=== PATIENT | female | born 2005 | race Caucasian/White ===

== ENCOUNTER 2024-06-01 17:38 | Emergency (ER) | payer OTHER, SELFPAY ==
--- NOTE | ~2024-06-01 | US_ITS ---
CLINICAL HISTORY: bilateral lower abd pain US OB 1st Trimester transvaginal Comparison: None Findings: No intrauterine identified. The uterus is anteverted and measures 8.4 cm in length. Endometrium measures 1.4 cm in thickness. Moderate simple appearing free fluid in the pelvis. Ovaries are normal in size and appearance. There is a 2.1 cm corpus luteum cyst within the right ovary. IMPRESSION: of unknown location. No intrauterine identified. Findings may indicate very early versus recent spontaneous or ectopic . Recommend serial beta HCG evaluation and follow-up ultrasound in 7 days. This document has been electronically signed by: Sudarshan Medellin MD on 06/02/2024 01:24:43
[2024-06-01 17:50] VITALS: BP 141/74; PULSE 86; RESP 19; TEMP 37.1; O2SAT 98; BMI 23.8
--- NOTE | 2024-06-01 17:54 | ED_ITS ---
HPI - General Adult General Chief complaint: Abdominal Pain Stated complaint: abd pain Time Seen by Provider: 06/01/24 22:24 Source: patient Mode of arrival: ambulatory Limitations: no limitations History of Present Illness ED Provider: Dr. Alyssa Ray HPI narrative: Patient comes to the emergency room complaining of 2 days of bilateral lower abdominal pain, nausea vomiting. Patient denies diarrhea, denies hematuria or dysuria, no flank pain. Related Data Previous Rx's ?Medication ?Instructions ?Recorded doxylamine 20 mg-pyridoxine 20 mg 1 tab PO BID PRN nausea and 06/02/24 tablet,immediate and delayed vomiting #30 tabs release [id number]-gun-[id number] 120 mcg-dha 25 1 tab PO DAILY #90 tabs 06/02/24 mg-herb no.293 66.7 mg chew tablet (Alive Premium ) Allergies Allergy/AdvReac Type Severity Reaction Status Date / Time coconut Allergy Anaphylaxis Verified 06/01/24 17:52 Review of Systems 2 Review of Systems: Constitutional : No Weight loss, No Fever, No Chills, No Night Sweats, No Fatigue, No Malaise ENT/Mouth : No Hearing loss, No Ear Pain, No Nasal Congestion, No Sinus Pain, No Hoarseness, No sore throat, No Rhinorrhea, No Swallowing Difficulty Eyes: No Eye Pain, No Swelling, No Redness, No Foreign Body, No Discharge, No Vision Changes Cardiovascular : No Chest Pain, No SOB, No Dyspnea on Exertion, No Orthopnea, No Edema, No Palpitations Respiratory : No Cough, No Sputum, No Wheezing, No Smoke Exposure, No Dyspnea Gastrointestinal : Complaining of nausea and vomiting, No Diarrhea, No Constipation, complaining of bilateral lower quadrant pain Genitourinary : no irregular bleeding, No Dysuria, No Urinary Frequency, No Hematuria, No Urinary Incontinence, No Urgency, No Flank Pain, No Urinary Flow Changes, No Hesitancy Musculoskeletal : No joint pain, No Myalgias, No Joint Swelling Skin : No Skin Lesions, No rash Neuro : No Weakness, No Numbness, No Paresthesias, No Loss of Consciousness, No Dizziness, No Headache Psych : No Anxiety/Panic, No Depression, No SI/HI/AH/VH, No Social Issues, Heme/Lymph: No Bruising, No Bleeding,No Lymphadenopathy Endocrine : No Polyuria, No Polydipsia, No Temperature Intolerance [facility] Social History Social History Smoked in Last 30 Days: No Use of substances other than those prescribed or required for medical reasons: No Advance Directives: No Advance Directives Information Provided: No Do you have a plan to hurt others: No Plan Patient : Yes Physical Exam ED Vital Signs: Vital Signs - 24 hr 06/01/24 17:50 06/01/24 22:44 06/02/24 00:00 Temperature 98.8 F 98.7 F 98.1 F Pulse Rate 86 74 74 Respiratory Rate 19 16 18 Blood Pressure 141/74 H 128/71 127/63 Pulse Oximetry 98 96 95 Oxygen Delivery Method Room Air Room Air 06/02/24 01:51 Temperature 98.4 F Pulse Rate 81 Respiratory Rate 16 Blood Pressure 119/62 Pulse Oximetry 98 Oxygen Delivery Method Room Air BMI result Body Mass Index 23.8 Const Other: Appearance: Alert. Oriented X3. No acute distress. Eyes: Pupils equal, round and reactive to light. ENT: Pharynx normal. Neck: Normal inspection. Neck supple. No lymph nodes noted. No crepitus CVS: Normal heart rate and rhythm. Pulses normal. Normal S1 and S2 Respiratory: No respiratory distress. Breath sounds normal. No Wheezing. No rales Abdomen: Soft, mild discomfort to palpation in bilateral lower quadrants, no rebound or guarding, No rigidity. No distention. Skin: Skin warm and dry. Normal skin color. Normal skin turgor. Extremities: No lower extremity edema. No Lacerations. No Rash Neuro: Oriented X 3. No motor deficit. No sensory deficit. Moving all extremities. No slurred speech. CN 2 through 12 grossly intact Psych: calm, cooperative, normal affect Course Course Course Narrative: RmE: 19-year-old female presents to ED for lower abdominal pain for the past couple of days. Patient denies any trauma. Labs ordered Medical Decision Making Medical Decision Making MDM Narrative: Patient reports that she has been vomiting for couple of days along with having abdominal pain. Patient's white blood cell count 11.0, likely reactive leukocytosis. No significant electrolyte abnormality. Patient's urine and beta hCG quant is positive, 352 -ultrasound : of unknown location, no intrauterine identified, findings may indicate a very early versus recent spontaneous or ectopic At this time, patient states that she has no pain at all, patient has no vaginal bleeding. It is unlikely that patient had spontaneous or an ectopic . Patient instructed to return in 48 hours for a beta hCG count. I discussed with the patient the signs of symptoms of an ectopic and may need to return to the emergency room immediately. Patient agrees with plan. Differential Diagnosis Differential Diagnoses: The differential diagnosis associated with the presentation includes (As above) Lab Data MDM Lab Attestation statement: I reviewed the patient's lab results. 06/01/24 19:07 06/01/24 19:07 Labs: Lab Results 06/01/24 Range/Units 19:07 WBC 11.0 H (4.8-10.8) X10*3/uL RBC 4.50 (4.20-5.50) X10*6/uL Hgb 13.0 (12.0-16.0) g/dl Hct 38.2 (37.0-47.0) % MCV 84.9 (80.0-98.0) fL MCH 28.9 (27.0-33.0) pg MCHC 34.0 (31.0-35.0) g/dl RDW 13.2 (11.0-16.0) % Plt Count 211 (160-400) X10*3/uL MPV 10.0 (9.4-12.3) fL Immature Gran % (Auto) 0.4 (0.0-0.4) % Neut % (Auto) 64.8 (45-73) % Lymph % (Auto) 27.1 (20-40) % [place] % (Auto) 5.5 (2-11) % Eos % (Auto) 1.6 (0-4) % Baso % (Auto) 0.6 (0-2) % Lymph # (Auto) 3.0 (1.2-4.9) X10*3/uL [place] # (Auto) 0.6 (0.1-1.2) X10*3/uL Eos # (Auto) 0.2 (0.0-0.4) X10*3/uL Baso # (Auto) 0.1 (0.0-0.2) X10*3/uL Abs Immat Gran (auto) 0.04 H (0.00-0.03) X10*3/uL Absolute Neuts (auto) 7.1 (2.0-8.3) x10*3/uL Absolute Nucleated RBC 0.000 (0.0-0.012) X10*3/uL Nucleated RBC % (auto) 0.0 (0.0-0.2) /100WBC Sodium 138 (135-145) mmol/L Potassium 4.0 (3.3-5.1) mmol/L Chloride 110 H (96-108) mmol/L Carbon Dioxide 21 L (22-29) mmol/L Anion Gap 11 L (12-20) BUN 4 L (9-16) mg/dL Creatinine 0.73 (0.5-1.4) mg/dL Estim Creat Clear Calc 96.4 Estimated GFR > 60 Random Glucose 86 (60-115) mg/dL Calcium 8.9 (8.4-10.2) mg/dL Total Bilirubin 0.5 (0.0-1.0) mg/dL Direct Bilirubin 0.1 (0.0-0.5) mg/dL AST 20 (5-31) U/L ALT 11 (0-31) U/L Alkaline Phosphatase 54 (39-117) U/L Total Protein 7.3 (6.5-8.0) g/dL Albumin 4.4 (3.5-5.0) g/dL Lipase 19 (8-78) U/L Beta HCG, Quant 352 mIU/mL Urine Color Yellow Urine Appearance Clear Urine pH 5.5 (5.0-9.0) Ur Specific [place] <= 1.005 (1.005-1.025) Urine Protein Negative (Neg-Trace) mg/dL Urine Glucose (UA) Negative (Negative) mg/dL Urine Ketones Trace (Negative) mg/dL Urine Blood Negative (Negative) Urine Nitrite Negative (Negative) Ur Leukocyte Esterase Negative (Negative) Urine Test POSITIVE H (NEGATIVE) Independent Interpretation I performed an independent interpretation of an: Ultrasound Radiology Impression Discussion of test interpretation with radiology: I have reviewed the radiologist's reading. Radiologist Impression: of unknown location. No intrauterine identified. Findings may indicate very early versus recent spontaneous or ectopic . Recommend serial beta HCG evaluation and follow-up ultrasound in 7 days. Critical Care Time Critical Care Time Critical Care Time: Yes Total Critical Care Time: 60 Attestation: I have personally provided critical care time. Time includes review of lab data, radiology results, discussion with consultants, and monitoring for potential decompensation. Intervention performed as documented. Discharge Plan Discharge Clinical Impression: Positive test, Abdominal pain Patient Disposition: Home, Self-Care Instructions: (ED), Abdominal Pain (ED) Additional Instructions: Please return in 48 hours, approximately around 19:00 on 06/03/2024. You need a beta hCG level. If you have any significant abdominal pain, vaginal bleeding, please return immediately to the emergency room. Prescriptions: New doxylamine-pyridoxine (vit B6) 20-20 mg tablet,IR,delayed rel,biphasic 1 tab PO BID PRN (Reason: nausea and vomiting) Qty: 30 0RF Alive Premium 120 mcg-25 mg- 66.7 mg tablet,chewable 1 tab PO DAILY Qty: 90 2RF Referrals: Nash Juarez MD [Physician] - 06/05/24 Interventions: ED Discharge Assessment Last Done: 06/02/24 01:51 Discharge Date/Time: 06/02/24 01:56 Print Language: German
[2024-06-01 19:11] LABS: MANUAL DIFF FLAG NO
[2024-06-01 19:12] LABS: Basophils Absolute Auto 0.1 X10*3/uL (0.0-0.2); Basophils Percent Auto 0.6 % (0-2); Eosinophils Absolute Auto 0.2 X10*3/uL (0.0-0.4); Eosinophils Percent Auto 1.6 % (0-4); Hematocrit 38.2 % (37.0-47.0); Imm Gran Abs Auto 0.04 X10*3/uL (0.00-0.03); Imm Gran Pct Auto 0.4 % (0.0-0.4); Lymphocytes Percent Auto 27.1 % (20-40); Mean Corpuscular Hemoglobin 28.9 pg (27.0-33.0); Mean Corpuscular Volume 84.9 fL (80.0-98.0); Monocytes Absolute Auto 0.6 X10*3/uL (0.1-1.2); Monocytes Percent Auto 5.5 % (2-11); Neutrophils Absolute Auto 7.1 x10*3/uL (2.0-8.3); Neutrophils Percent Auto 64.8 % (45-73); Platelet Count 211 X10*3/uL (160-400); Red Cell Distribution Width 13.2 % (11.0-16.0)
[2024-06-01 19:15] LABS: Appearance Urine Clear; Color Urine Yellow; Glucose Urine UA Negative (Negative); Leukocyte Esterase Urine Negative (Negative); Nitrite Urine Negative (Negative); PH 5.5 (5.0-9.0); Specific Gravity - Urine <= 1.005 (1.005-1.025); UPreg QC Valid YES; Urine Blood Negative (Negative); Urine Ketones Trace mg/dL (Negative); Urine Pregnancy POSITIVE (NEGATIVE); Urine Protein Negative (Neg-Trace)
[2024-06-01 19:28] LABS: Alanine Aminotransferase 11 U/L (0-31); Albumin Level 4.4 g/dL (3.5-5.0); Alkaline Phosphatase 54 U/L (39-117); Anion Gap 11 (12-20); Aspartate Amino Transferase 20 U/L (5-31); Bilirubin Direct 0.1 mg/dL (0.0-0.5); Bilirubin Total 0.5 mg/dL (0.0-1.0); Blood Urea Nitrogen 4 mg/dL (9-16); Calcium 8.9 mg/dL (8.4-10.2); Carbon Dioxide 21 mmol/L (22-29); Chloride 110 mmol/L (96-108); Creatinine Clr Calc Pharmacy 96.4; Estimated Glomerular Filt Rate > 60; Glucose Random 86 mg/dL (60-115); Lipase 19 U/L (8-78); Sodium 138 mmol/L (135-145); Total Protein 7.3 g/dL (6.5-8.0)
[2024-06-01 19:34] LABS: HCG Quantitative 352 mIU/mL
[2024-06-01 22:44] VITALS: BP 128/71; PULSE 74; RESP 16; TEMP 37.1; O2SAT 96
[2024-06-02] VITALS: BP 127/63; PULSE 74; RESP 18; TEMP 36.7; O2SAT 95
[2024-06-02 01:51] VITALS: BP 119/62; PULSE 81; RESP 16; TEMP 36.9; O2SAT 98
== END 2024-06-02 01:56 | disposition home or self-care (01) ==
PROVIDERS: Physician Assistant; Emergency Provider Emergency Medicine
DX: O21.0 Mild hyperemesis gravidarum (principal); Z3A.01 Less than 8 weeks gestation of pregnancy; R10.2 Pelvic and perineal pain; Z79.899 Other long term (current) drug therapy
CPT/HCPCS: 36415; 76801; 76817; 80048; 80076; 81003; 81025; 83690; 84702; 85025; 99284

== ENCOUNTER 2024-06-04 18:45 | Emergency (ER) | payer OTHER, SELFPAY ==
--- NOTE | ~2024-06-04 | US_ITS ---
CLINICAL HISTORY: IUP? US pelvis transabdominal and transvaginal with Doppler Comparison: US - US OB PELVIC AND TRANSVAGINAL - 06/02/24 00:18 EST Findings: Transabdominal scanning performed for overall anatomy. Transvaginal scanning performed for additional detail. Uterus measures 7.3 x 4.6 x 6 cm. There is a small intrauterine gestational sac with mean sac diameter of 3.1 mm corresponding to estimated gestational age of 4 weeks 5 days. There is no yolk sac or pole. Right ovary measures 3.3 x 2.3 x 2.8 cm. There is no right adnexal mass or fluid collection. There is normal color Doppler and arterial/venous spectral tracings within the right ovary. Left ovary measures 2.9 x 2.1 x 2 cm. There is no left adnexal mass or fluid collection. There is normal color Doppler and arterial/venous spectral tracings within the left ovary. There is minimal free fluid in the cul-de-sac. IMPRESSION: Small intrauterine gestational sac with estimated gestational age of 4 weeks 5 days. No pole seen at this time to confirm viability. This document has been electronically signed by: Thee Galarza MD on 06/04/2024 21:29:25
--- NOTE | 2024-06-04 19:28 | ED_ITS ---
HPI - General Adult General Chief complaint: Recheck/Abnormal Lab/Rx Stated complaint: Need HCG levels retested Time Seen by Provider: 06/04/24 23:24 Related Data Previous Rx's ?Medication ?Instructions ?Recorded doxylamine 20 mg-pyridoxine 20 mg 1 tab PO BID PRN nausea and 06/02/24 tablet,immediate and delayed vomiting #30 tabs release [id number]-khw-eqwmb 120 mcg-dha 25 1 tab PO DAILY #90 tabs 06/02/24 mg-herb no.293 66.7 mg chew tablet (Alive Premium ) Allergies Allergy/AdvReac Type Severity Reaction Status Date / Time coconut Allergy Anaphylaxis Verified 06/04/24 19:42 [facility] Social History Social History Advance Directives: No Advance Directives Information Provided: Yes Physical Exam ED Vital Signs: Vital Signs - 24 hr 06/04/24 19:41 06/04/24 23:49 Temperature 98.6 F 98.3 F Pulse Rate 78 77 Respiratory Rate 16 18 Blood Pressure 109/62 113/74 Pulse Oximetry 99 98 Oxygen Delivery Method Room Air Room Air BMI result Body Mass Index 26.4 Course Course Course Narrative: RME: 19-year-old female presents to ED for repeat hCG ultrasound. Patient is but 2 days ago and ED head ultrasound with no IUP. Patient returns to ED today for repeat hCG and IUP with mild abdominal cramping. Labs ultrasound ordered Medical Decision Making Lab Data 06/04/24 20:12 06/04/24 20:12 Labs: Lab Results 06/04/24 Range/Units 20:12 WBC 8.9 (4.8-10.8) X10*3/uL RBC 4.32 (4.20-5.50) X10*6/uL Hgb 12.3 (12.0-16.0) g/dl Hct 37.4 (37.0-47.0) % MCV 86.6 (80.0-98.0) fL MCH 28.5 (27.0-33.0) pg MCHC 32.9 (31.0-35.0) g/dl RDW 13.2 (11.0-16.0) % Plt Count 201 (160-400) X10*3/uL MPV 9.8 (9.4-12.3) fL Immature Gran % (Auto) 0.3 (0.0-0.4) % Neut % (Auto) 62.7 (45-73) % Lymph % (Auto) 24.4 (20-40) % [place] % (Auto) 7.7 (2-11) % Eos % (Auto) 4.1 H (0-4) % Baso % (Auto) 0.8 (0-2) % Lymph # (Auto) 2.2 (1.2-4.9) X10*3/uL [place] # (Auto) 0.7 (0.1-1.2) X10*3/uL Eos # (Auto) 0.4 (0.0-0.4) X10*3/uL Baso # (Auto) 0.1 (0.0-0.2) X10*3/uL Abs Immat Gran (auto) 0.03 (0.00-0.03) X10*3/uL Absolute Neuts (auto) 5.6 (2.0-8.3) x10*3/uL Absolute Nucleated RBC 0.000 (0.0-0.012) X10*3/uL Nucleated RBC % (auto) 0.0 (0.0-0.2) /100WBC PT 13.7 H (10.9-12.4) SEC INR 1.2 H (0.9-1.1) APTT 28.8 (26.0-36.8) SEC Sodium 141 (135-145) mmol/L Potassium 4.1 (3.3-5.1) mmol/L Chloride 110 H (96-108) mmol/L Carbon Dioxide 23 (22-29) mmol/L Anion Gap 12 (12-20) BUN 7 L (9-16) mg/dL Creatinine 0.65 (0.5-1.4) mg/dL Estim Creat Clear Calc 121.5 Estimated GFR > 60 Random Glucose 86 (60-115) mg/dL Calcium 8.9 (8.4-10.2) mg/dL Total Bilirubin 0.4 (0.0-1.0) mg/dL AST 21 (5-31) U/L ALT 15 (0-31) U/L Alkaline Phosphatase 56 (39-117) U/L Total Protein 7.0 (6.5-8.0) g/dL Albumin 4.3 (3.5-5.0) g/dL Beta HCG, Quant 1500 mIU/mL Blood Type A Positive Discharge Plan Discharge Clinical Impression: Patient Disposition: Home, Self-Care Instructions: (ED) Prescriptions: No Action doxylamine-pyridoxine (vit B6) 20-20 mg tablet,IR,delayed rel,biphasic 1 tab PO BID PRN (Reason: nausea and vomiting) Qty: 30 0RF Alive Premium 120 mcg-25 mg- 66.7 mg tablet,chewable 1 tab PO DAILY Qty: 90 2RF Referrals: Tiffany Heath MD [Primary Care Provider] - (Please also follow-up with your OBGYN this week.) Print Language: Greek
[2024-06-04 19:41] VITALS: BP 109/62; PULSE 78; RESP 16; TEMP 37; O2SAT 99; BMI 26.4
[2024-06-04 20:15] LABS: MANUAL DIFF FLAG NO
[2024-06-04 20:17] LABS: Basophils Absolute Auto 0.1 X10*3/uL (0.0-0.2); Basophils Percent Auto 0.8 % (0-2); Eosinophils Absolute Auto 0.4 X10*3/uL (0.0-0.4); Eosinophils Percent Auto 4.1 % (0-4); Hematocrit 37.4 % (37.0-47.0); Hemoglobin 12.3 g/dl (12.0-16.0); Imm Gran Abs Auto 0.03 X10*3/uL (0.00-0.03); Imm Gran Pct Auto 0.3 % (0.0-0.4); Lymphocytes Absolute Auto 2.2 X10*3/uL (1.2-4.9); Lymphocytes Percent Auto 24.4 % (20-40); Mean Corpuscular HGB Conc 32.9 g/dl (31.0-35.0); Mean Corpuscular Hemoglobin 28.5 pg (27.0-33.0); Mean Corpuscular Volume 86.6 fL (80.0-98.0); Mean Platelet Volume 9.8 fL (9.4-12.3); Monocytes Absolute Auto 0.7 X10*3/uL (0.1-1.2); Monocytes Percent Auto 7.7 % (2-11); Neutrophils Absolute Auto 5.6 x10*3/uL (2.0-8.3); Neutrophils Percent Auto 62.7 % (45-73); Platelet Count 201 X10*3/uL (160-400); Red Blood Count 4.32 X10*6/uL (4.20-5.50); Red Cell Distribution Width 13.2 % (11.0-16.0); White Blood Count 8.9 X10*3/uL (4.8-10.8)
[2024-06-04 20:22] LABS: INTERNATIONAL NORM RATIO 1.2 (0.9-1.1); Prothrombin Time 13.7 SEC (10.9-12.4)
[2024-06-04 20:25] LABS: Partial Thromboplastin Time 28.8 SEC (26.0-36.8)
[2024-06-04 20:41] LABS: Alanine Aminotransferase 15 U/L (0-31); Albumin Level 4.3 g/dL (3.5-5.0); Alkaline Phosphatase 56 U/L (39-117); Anion Gap 12 (12-20); Aspartate Amino Transferase 21 U/L (5-31); Bilirubin Total 0.4 mg/dL (0.0-1.0); Blood Urea Nitrogen 7 mg/dL (9-16); Calcium 8.9 mg/dL (8.4-10.2); Carbon Dioxide 23 mmol/L (22-29); Chloride 110 mmol/L (96-108); Creatinine Clr Calc Pharmacy 121.5; Estimated Glomerular Filt Rate > 60; Glucose Random 86 mg/dL (60-115); Potassium 4.1 mmol/L (3.3-5.1); Sodium 141 mmol/L (135-145)
[2024-06-04 20:42] LABS: HCG Quantitative 1500 mIU/mL
[2024-06-04 23:49] VITALS: BP 113/74; PULSE 77; RESP 18; TEMP 36.8; O2SAT 98
--- NOTE | 2024-06-04 23:53 | ED_ITS ---
HPI - Recheck/Abnormal Lab/Rx General Chief Complaint: Recheck/Abnormal Lab/Rx Stated Complaint: Need HCG levels retested Time Seen by Provider: 06/04/24 23:24 History of Present Illness HPI narrative: Patient is a 19-year-old female presents today with having needing a repeat hormone check. Patient found out she is 2 days ago. Had a quant of approximately 400. She deny having any additional pain. No pain on urination. No fever no chills. No systemic complaints. No vaginal bleeding. Related Data Previous Rx's ?Medication ?Instructions ?Recorded doxylamine 20 mg-pyridoxine 20 mg 1 tab PO BID PRN nausea and 06/02/24 tablet,immediate and delayed vomiting #30 tabs release uajenrtd-uut-gmpbl 120 mcg-dha 25 1 tab PO DAILY #90 tabs 06/02/24 mg-herb no.293 66.7 mg chew tablet (Alive Premium ) Allergies Allergy/AdvReac Type Severity Reaction Status Date / Time coconut Allergy Anaphylaxis Verified 06/04/24 19:42 Review of Systems 2 Review of Systems: No fever no chills no chest pain or shortness of breath no dizziness Yes all other systems are reviewed and are negative [facility] Past Medical History Attestation statement: The following information was validated with the patient. Social History Social History Advance Directives: No Advance Directives Information Provided: Yes Physical Exam 2 Vital Signs: Vital Signs: Last Vital Signs Temp 98.3 F 06/04/24 23:49 Pulse 77 06/04/24 23:49 Resp 18 06/04/24 23:49 BP 113/74 06/04/24 23:49 Pulse Ox 98 06/04/24 23:49 O2 Del Method Room Air 06/04/24 23:49 BMI result Body Mass Index 26.4 Appearance: Alert. Oriented X3. No acute distress. Eyes: Pupils equal, round and reactive to light. ENT: Pharynx normal. Neck: Normal inspection. Neck supple. No lymph nodes noted. No crepitus CVS: Normal heart rate and rhythm. Pulses normal. Normal S1 and S2 Respiratory: No respiratory distress. Breath sounds normal. No Wheezing. No rales Abdomen: Soft and nontender. No rigidity. No distention. good BS x4 Skin: Skin warm and dry. Normal skin color. Normal skin turgor. Extremities: No lower extremity edema. Neurovascular intact to all extremities. No Lacerations. No Rash Neuro: Oriented X 3. No motor deficit. No sensory deficit. Moving all extermities. No slurred speech Medical Decision Making Medical Decision Making [facility] Narrative: Patient's quant is over 1200. In no acute distress. Ultrasound was done it showed a positive yolk sac. Patient's quant rise appropriately. Positive yolk sac all indicative of an intrauterine . Will have patient follow-up on an outpatient basis with OBGYN. Currently in stable condition. Differential Diagnosis Differential Diagnoses: The differential diagnosis associated with the presentation includes Ectopic, miscarriage, Admission/Observation Consideration of admission/observation: Escalation of care including admission/observation considered Lab Data [facility] Lab Attestation statement: I reviewed the patient's lab results. 06/04/24 20:12 06/04/24 20:12 Labs: Lab Results 06/04/24 Range/Units 20:12 WBC 8.9 (4.8-10.8) X10*3/uL RBC 4.32 (4.20-5.50) X10*6/uL Hgb 12.3 (12.0-16.0) g/dl Hct 37.4 (37.0-47.0) % MCV 86.6 (80.0-98.0) fL MCH 28.5 (27.0-33.0) pg MCHC 32.9 (31.0-35.0) g/dl RDW 13.2 (11.0-16.0) % Plt Count 201 (160-400) X10*3/uL MPV 9.8 (9.4-12.3) fL Immature Gran % (Auto) 0.3 (0.0-0.4) % Neut % (Auto) 62.7 (45-73) % Lymph % (Auto) 24.4 (20-40) % [place] % (Auto) 7.7 (2-11) % Eos % (Auto) 4.1 H (0-4) % Baso % (Auto) 0.8 (0-2) % Lymph # (Auto) 2.2 (1.2-4.9) X10*3/uL [place] # (Auto) 0.7 (0.1-1.2) X10*3/uL Eos # (Auto) 0.4 (0.0-0.4) X10*3/uL Baso # (Auto) 0.1 (0.0-0.2) X10*3/uL Abs Immat Gran (auto) 0.03 (0.00-0.03) X10*3/uL Absolute Neuts (auto) 5.6 (2.0-8.3) x10*3/uL Absolute Nucleated RBC 0.000 (0.0-0.012) X10*3/uL Nucleated RBC % (auto) 0.0 (0.0-0.2) /100WBC PT 13.7 H (10.9-12.4) SEC INR 1.2 H (0.9-1.1) APTT 28.8 (26.0-36.8) SEC Sodium 141 (135-145) mmol/L Potassium 4.1 (3.3-5.1) mmol/L Chloride 110 H (96-108) mmol/L Carbon Dioxide 23 (22-29) mmol/L Anion Gap 12 (12-20) BUN 7 L (9-16) mg/dL Creatinine 0.65 (0.5-1.4) mg/dL Estim Creat Clear Calc 121.5 Estimated GFR > 60 Random Glucose 86 (60-115) mg/dL Calcium 8.9 (8.4-10.2) mg/dL Total Bilirubin 0.4 (0.0-1.0) mg/dL AST 21 (5-31) U/L ALT 15 (0-31) U/L Alkaline Phosphatase 56 (39-117) U/L Total Protein 7.0 (6.5-8.0) g/dL Albumin 4.3 (3.5-5.0) g/dL Beta HCG, Quant 1500 mIU/mL Blood Type A Positive Social Determinants Patient?s care significantly limited by Social Determinants of Health including: Problems related to primary support group Discharge Plan Discharge Clinical Impression: Patient Disposition: Home, Self-Care Instructions: (ED) Prescriptions: No Action doxylamine-pyridoxine (vit B6) 20-20 mg tablet,IR,delayed rel,biphasic 1 tab PO BID PRN (Reason: nausea and vomiting) Qty: 30 0RF Alive Premium 120 mcg-25 mg- 66.7 mg tablet,chewable 1 tab PO DAILY Qty: 90 2RF Referrals: Tiffany Heath MD [Primary Care Provider] - (Please also follow-up with your OBGYN this week.) Print Language: Turkish
[2024-06-05] LABS: Appearance Urine Clear; Color Urine Yellow; Glucose Urine UA Negative (Negative); Leukocyte Esterase Urine Negative (Negative); Nitrite Urine Negative (Negative); PH 6.5 (5.0-9.0); Specific Gravity - Urine 1.025 (1.005-1.025); Urine Blood Negative (Negative); Urine Ketones Negative (Negative); Urine Protein Negative (Neg-Trace)
[2024-06-05 00:35] VITALS: BP 113/74; PULSE 77; RESP 18; TEMP 36.8; O2SAT 98
== END 2024-06-05 00:36 | disposition home or self-care (01) ==
PROVIDERS: Physician Assistant; Emergency Provider Emergency Medicine Emergency Medical Services; PCP Pediatrics
DX: O26.91 Pregnancy related conditions, unspecified, first trimester (principal); Z3A.01 Less than 8 weeks gestation of pregnancy; R79.89 Other specified abnormal findings of blood chemistry; Z79.899 Other long term (current) drug therapy
CPT/HCPCS: 36415; 76801; 76817; 80053; 81003; 81025; 84702; 85025; 85610; 85730; 86900; 86901; 99283

== ENCOUNTER 2024-06-08 09:52 | Outpatient (AMB) | payer OTHER, SELFPAY ==
--- NOTE | 2024-06-08 09:56 | A.OFFVIS_ITS ---
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 She reports her menstrual cycles are regular. 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 Is currently taking vitamins. She has a partner and good family support. She is not interested in proceeding with at this time. She denies any pelvic pain or vaginal bleeding. [facility] Medical History (Updated 06/08/24 @ 10:13 by Mami Snow CNM) Early stage of Family History (Updated 06/08/24 @ 10:00 by TITUS Christianson) Mother History of breast cancer Social History (Updated 06/08/24 @ 10:01 by ITTUS Christianson) Alcohol intake: never Patient Tobacco Use Status: Never used Tobacco Use of substances other than those prescribed or required for medical reasons: No Sexually active: Yes Sexual orientation: Straight/Heterosexual Gender identity: Female Female Reproductive History Menstrual Duration of menses: 3-5 days Date of last menstrual period: 05/03/24 control method: pills Total pregnancies: 1 Review of Systems Const All systems reviewed & are unremarkable except as noted in HPI and below Endo Reports no additional complaints Physical Exam Vital Signs: Last Vital Signs BP 110/70 06/08/24 09:57 BMI result Body Mass Index 26.2 Const General: cooperative, healthy appearing and no acute distress Psych Appearance: well kempt Attitude: cooperative Thought process: Normal thought process present Results Reviewed Results Reviewed: [address] [address] Ultrasound Report Signed Patient: Daryc Barclay MR#: [id number] : 2005 Acct:[id number] Age/Sex: 19 / F ADM Date: 06/04/24 Loc: [facility].ED Attending Dr: Ordering Physician: Holger Chacon Date of Service: 06/04/24 Procedure(s): US OB pelvic and transvaginal Accession Number(s): [id number] cc: Holger Chacon; Physician,None ~ CLINICAL HISTORY: IUP? US pelvis transabdominal and transvaginal with Doppler Comparison: US - US OB PELVIC AND TRANSVAGINAL - 06/02/24 00:18 EST Findings: Transabdominal scanning performed for overall anatomy. Transvaginal scanning performed for additional detail. Uterus measures 7.3 x 4.6 x 6 cm. There is a small intrauterine gestational sac with mean sac diameter of 3.1 mm corresponding to estimated gestational age of 4 weeks 5 days. There is no yolk sac or pole. Right ovary measures 3.3 x 2.3 x 2.8 cm. There is no right adnexal mass or fluid collection. There is normal color Doppler and arterial/venous spectral tracings within the right ovary. Left ovary measures 2.9 x 2.1 x 2 cm. There is no left adnexal mass or fluid collection. There is normal color Doppler and arterial/venous spectral tracings within the left ovary. There is minimal free fluid in the cul-de-sac. IMPRESSION: Small intrauterine gestational sac with estimated gestational age of 4 weeks 5 days. No pole seen at this time to confirm viability. This document has been electronically signed by: Thee Galarza MD on 06/04/2024 21:29:25 Dictated By: Thee Galarza MD Signed By: <Electronically signed by Thee Galarza MD in OV> 06/04/242129 DD/ 28 TD/TT: 06/04/242128 Insurance Verification Specialist: Assessment & Plan Assessment & Plan (1) Unplanned : Code(s): Z34.90 - Encounter for supervision of normal , unspecified, unspecified trimester Plan Discussed: Starting B6 vitamins [id number] is option to help with current nausea. Options for , plans to terminate, [facility] information given. Advised to follow up if needed p.r.n. The patient expressed understanding and agreement with the plan of care. All of her questions and concerns were addressed to the best of my ability. This note is constructed using voice recognition software. While every effort has been made to ensure accuracy, boat motor mechanic errors may have been included. Coding Level of Care Code New Pt Level 3 (12175) Diagnoses Unplanned Z34.90
[2024-06-08 09:57] VITALS: BP 110/70; BMI 26.2
== END 2024-06-08 13:05 | disposition home or self-care (01) ==
PROVIDERS: PCP Pediatrics; Visit Provider Advanced Practice Midwife
DX: Z34.90 Encounter for supervision of normal pregnancy, unspecified, unspecified trimester (principal)
CPT/HCPCS: 99203

== ENCOUNTER → 2024-06-08 09:52 | Outpatient (BNVA) | payer OTHER, SELFPAY | PROVIDERS: PCP Pediatrics; Visit Provider Advanced Practice Midwife | DX: Z34.91 Encounter for supervision of normal pregnancy, unspecified, first trimester (principal); Z3A.01 Less than 8 weeks gestation of pregnancy | CPT/HCPCS: 99202 ==

== ENCOUNTER 2024-06-22 14:34 | Outpatient (REF) | payer OTHER, SELFPAY ==
--- NOTE | ~2024-06-22 | US_ITS ---
EXAMINATION: US FIRST TRIMESTER OB HISTORY: Z34.90 - Encounter for supervision of normal , unspecified TECHNIQUE: Transabdominal and endovaginal scanning was performed. FINDINGS: There is a single, live intrauterine . AUA = 7 weeks 1 days RADHA(AUA) = 02/07/2025 LMP = 05/02/2024 GA(LMP) = 7 weeks 2 days RADHA(LMP) = 02/06/2025 CRL = 0.96cm Yolk Sac: seen FHR = 143bpm Right ovary: The right ovary measures 4.4 x 2.8 x 3.3 cm and demonstrates a 1.7 x 2.2 x 1.7 hypoechoic structure which likely represents the corpus luteum. Left ovary: The left ovary measures 2.3 x 2.8 x 2.3 cm and is unremarkable. Cul-de-sac: No free fluid US/US OB pelvic and transvaginal IMPRESSION: Single, live intrauterine of estimated gestational age 7 weeks, 1 day. Electronically signed by: Emil Hagen MD 06/23/2024 07:11 AM EST
--- OUTSIDE RECORDS SUMMARY | 2024-06-22 17:20 | XMS_ITS | Encounter Summary ---
Author Organization [facility] Address [address] [place] [address] Phone Care Team Providers Care Cold Storage Worker Name Role Phone Tiffany Heath MD Primary Care Provider [phone] Reason for Visit * Reason Onset Date Comments Med Refill 04/24/2020 Encounter Details Date Type Department Care Team (Late st Contact Info) Description 04/24/2020 Refill [facility] [place] [address] [place] [address] Miriam Elise MD [address] [place] [address] Encounter for initial prescription of injectable contraceptive Social History Tobacco Use Types Packs/Day Years Used Date Smoking Tobacco: Never Smokeless Tobacco: Never Comments:Never smoker Alcohol Use Standard Drinks/Week Comments Never 0 (1 standard drink = 0.6 oz pur e alcohol) Hunger/Food Answer Date Recorded In the last 12 months, did y ou or your family ever eat less than you felt you should because there wasn't enough money for food? No 08/10/2019 Stable Housing Answer Date Recorded Are you worried that in the next 2 months you may not have stable housing? No 08/10/2019 Transportation Concerns Answer Date Rec orded In the last 12 months, have you or your family ever had to go without healthcare because you didn't have a way to get there? No 08/10/2019 Hazards in Home Answer Date Recorded Think about the place you li ve. Do you have problems with any of the following? Pests (mice or roaches), mold, no/not working smoke detectors, water leaks, no window guards. No 2019 Financing Utilities Answer Date Recorde d In the last 12 months, has t he electric, gas, oil, or water company threatened to shut off your services in your home? No 08/10/2019 Safety at Home Answer Date Recorded Are you or your family worried about feeling saf e in your home? No 08/10/2019 Outside Support Answer Date Recorded Do you feel that you need mo re support from other people or programs to help you care for yourself or your family? No 08/10/2019 Understanding Health Concerns Answer Da te Recorded Do you need help understandi ng your or your child's healthcare needs (diagnosis, medications, plan, etc.)? No 08/10/2019 Financing Health Concerns Answer Date R ecorded In the last 12 months, was t here a time when your child needed to see a doctor or get medications or supplies but could not because of cost? No 08/10/2019 Missing School or Work Answer Date Jesse rded Did you or your child miss s chool or work because of a health problem that could have been avoided? No 08/10/2019 Comments No Sex and Gender Information Value Date Recorded Sex Assigned at Not on file Legal Sex Female 4:57 PM EDT Gender Identity Female 09/09/2020 7:49 AM EDT Sexual Orientation Straight 10/21/2022 3: 04 PM EDT documented as of this encounter Miscellaneous Notes * Telephone Encounter - Monserrat Alvarenga LPN - 04/24/2020 4:02 PM EST I called the pharmacy and refill not needed on this med. Refused refill. documented in this encounter Plan of Treatment Not on file documented as of this encounter Visit Diagnoses Diagnosis Encounter for initial prescription of injectable contraceptive documented in this encounter Care Teams Cold Storage Worker Relationship Specialty Start Date End Date Tiffany Heath MD [address] [place] [address] PCP - General Pediatrics 06/25/23 03/28/24 documented as of this encounter
--- OUTSIDE RECORDS SUMMARY | 2024-06-22 17:20 | XMS_ITS | Encounter Summary ---
Author Organization [facility] Address [address] [place] [address] Phone Care Team Providers Care Pretzel Cooker Name Role Phone Tiffany Heath MD Primary Care Provider [phone] Encounter Details Date Type Department Care Team (Late st Contact Info) Description 01/14/2017 Conversion Encounter [facility] [place] [address] [place] [address] Social History Tobacco Use Types Packs/Day Years Used Date Smoking Tobacco: Never Assessed Comments Unknown Sex and Gender Information Value Date Recorded Sex Assigned at Not on file Legal Sex Female 4:57 PM EDT Gender Identity Female 09/09/2020 7:49 AM EDT Sexual Orientation Straight 10/21/2022 3: 04 PM EDT documented as of this encounter Plan of Treatment Not on file documented as of this encounter Visit Diagnoses Not on filedocumented in this encounter Care Teams Pretzel Cooker Relationship Specialty Start Date End Date Tiffany Heath MD [address] [place] [address] PCP - General Pediatrics 06/25/23 03/28/24 documented as of this encounter
--- OUTSIDE RECORDS SUMMARY | 2024-06-22 17:20 | XMS_ITS | Encounter Summary ---
Author Organization [facility] Address [address] [place] [address] Phone Care Team Providers Care Appliance Parts Counter Clerk Name Role Phone Tiffany Heath MD Primary Care Provider [phone] Encounter Details Date Type Department Care Team (Late st Contact Info) Description 05/08/[address] [facility] [place] Family Medicine [address] [place] [address] Family Medicine, Physician [address] [place], [place] [address] Social History Tobacco Use Types Packs/Day Years [...] on filedocumented in this encounter Care Teams Appliance Parts Counter Clerk Relationship Specialty Start Date End Date Tiffany Heath MD [address] [place] [address] PCP - General Pediatrics 06/25/23 03/28/24 documented as of this encounter
--- OUTSIDE RECORDS SUMMARY | 2024-06-22 17:20 | XMS_ITS | Encounter Summary ---
Author Organization [facility] Address [address] [place] [address] Phone Care Team Providers Care Team Assembler Name Role Phone Tiffany Heath MD Primary Care Provider [phone] Encounter Details Date Type Department Care Team (Late st Contact Info) Description 06/29/2011 Documentation [facility] [place] Family Medicine [address] [place] [address] Family Medicine, Physician [address] [place], [place] [address] Social History Tobacco Use Types Packs/Day Years [...] on filedocumented in this encounter Care Teams Team Assembler Relationship Specialty Start Date End Date Tiffany Heath MD [address] [place] [address] PCP - General Pediatrics 06/25/23 03/28/24 documented as of this encounter
--- OUTSIDE RECORDS SUMMARY | 2024-06-22 17:20 | XMS_ITS | Clinical Summary ---
Author Organization [facility] Address [address] [place] [address] Phone Care Team Providers Care Web Services Professional Name Role Phone Unavailable Primary Care Provider Unavailabl e Allergies No known active allergies Medications norgestimate-ethi nyl estradiol (Ortho Tri-Cyclen, 28,) 0.18/0.215/0.25 MG-35 MCG per tabletIndications :Encounter for surveillance of contraceptive pills Take 1 tablet by mouth daily. 90 tablet 4 4 025 Active Spacer/Aero-Holdi ng Chambers (AeroChamber Plus Riley-Vu Large) miscIndications:M ild intermittent asthma without complication For use with albuterol inhaler 2 each 3 4 Active Additional Information Patient not taking.Reported on 01/12/2024 albuterol HFA 108 (90 Base) MCG/ACT inhalerIndication s:Mild intermittent asthma without complication Inhale 2 puffs every 4 (four) hours as needed for wheezing or shortness of breath. One for home and one for school. 2 Units 4 025 Active hydrOXYzine 25 MG tabletIndications :Anxiety and depression Take 1 tablet (25 mg total) by mouth daily as needed for anxiety for up to 10 days. 10 tablet 4 Active Active Problems Problem Noted Date Diagnosed Date Seasonal allergies 10/28/2023 Overview (10/28/2023): September 2023: Zyrtec and sometimes Claritin for allergic rhinitis. Depression with anxiety 08/10/2019 Overview (01/15/2024): 2020 - self-harm, anxiety and depression., started seeing therapist Fer at [facility], for one year, then stopped. 01/12/24: Rating scales show moderate anxiety and depression. She feels her coping mechanisms help and feels that she is supported by friends and family. Declining meds and therapy at this time, but is open to help if she feels worse in the future. Recheck in 4-6 months. Assessment & Plan (01/15/2024 9:43 AM EDT): Rating scales show moderate anxiety and depression. She feels her coping mechanisms help and feels that she is supported by friends and family. Declining meds and therapy at this time, but is open to help if she feels worse in the future. Counseling done. Recheck in 4-6 months. Mild intermittent asthma 11/09/2013 Overview (01/15/2024): albuterol prn 01/12/24: ACT score 16 today, due to recent heat and humidity, which she says are triggers. She feels that Albuterol use with spacer is helping her each time. If continues with frequent inhaler use independent of weather changes, will need to consider controller. Followup prn. Assessment & Plan (01/15/2024 9:41 AM EDT): ACT score 16 today, due to recent heat and humidity, which she says are triggers. She feels that Albuterol use with spacer is helping her each time. If continues with frequent inhaler use independent of weather changes, will need to consider controller. Counseling done. Followup prn. Assessment & Plan (10/21/2022 4:04 PM EDT): No issues Assessment & Plan (10/14/2020 4:17 PM EDT): No issues in awhile Assessment & Plan (08/02/2018 3:55 PM EST): No issues Rare need for albuterol Immunizations Name Administration Dates Next Due DTaP 5 08/23/2007, 5,2003,07/23,2003 H1N1 08/27/2009 HPV Vaccine 9 Valent 12/26/2015,11/29/2014 Hep A, ped/adol 11/09/2013,11/12/2010 Hep B, ped/adol 2003,2003,2003 Hib (HbOC) 06/23/2004 Hib (PRP-T) 2003,2003,2003 IPV 08/23/2007, 4,2003,05/17 Influenza Split 04/07/2012 Influenza, injectable, MDCK, preservative free, quadrivalent 02/09/2022 Influenza, injectable, quadr ivalent, preservative free 06/18/2021,08/10/2019,08/02/2018,05/02 Influenza, injectable, trivalent 05/06/2006 MMR 03/18/2004 MMRV 08/23/2007 Meningococcal Conj (Menactra) MCV4P 08/10/2019,0 11/29/2014 Pneumococcal Conjugate 06/23/2004,2003,2003,05/17 Tdap 11/29/2014 Varicella 03/18/2004 Family History Medical History Relation Name Comments Breast cancer Mother Allyssa Thyroid disease Mother Allyssa Thyroid cancer Sister Merlene Relation Name Status Comments Father taylor Alive Father: Alive a nd well Half-Brother 1 Crow Alive Half brother (M): Asthma, Asthma, Asthma Half-Brother 2 Eduar Alive Half brother (M): Asthma, Asthma, Asthma Half-Brother 3 HerberthCharli Cruz Alive Half brother (M): Asthma, Asthma, Asthma Half-Sister Carmela Alive Half sister (M) : Asthma, [place] in thyroid gland Maternal Grandmother Materna l grandmother: Heart disease, Seizure disorder Mother Allyssa Alive Sister Merlene Alive Social History Tobacco Use Types Packs/Day Years [...] there wasn't enough money for food? No 10/28/2023 Stable Housing Answer Date Recorded Are you worried that in the next 2 months you may not have stable housing? No 10/28/2023 Transportation Concerns Answer Date Rec orded In the last 12 months, have you or your family ever had to go without healthcare because you didn't have a way to get there? No 10/28/2023 Hazards in Home Answer Date Recorded Think about the place you li ve. Do you have problems with any of the following? Pests (mice or roaches), mold, no/not working smoke detectors, water leaks, no window guards. No 2023 Financing Utilities Answer Date Recorde d In the last 12 months, has t he electric, gas, oil, or water company threatened to shut off your services in your home? No 10/28/2023 Safety at Home Answer Date Recorded Are you or your family worried about feeling saf e in your home? No 10/28/2023 Outside Support Answer Date Recorded Do you feel that you need mo re support from other people or programs to help you care for yourself or your family? No 10/28/2023 Understanding Health Concerns Answer Da te Recorded Do you need help understandi ng your or your child's healthcare needs (diagnosis, medications, plan, etc.)? No 10/28/2023 Financing Health Concerns Answer Date R ecorded In the last 12 months, was t here a time when your child needed to see a doctor or get medications or supplies but could not because of cost? No 10/28/2023 Missing School or Work Answer Date Jesse rded Did you or your child miss s chool or work because of a health problem that could have been avoided? No 10/28/2023 Child Education Answer Date Recorded Do you have concerns about y our/your child's learning or behavior in school, preschool, or daycare? No 10/28/2023 Comments No Sex and Gender Information Value Date Recorded Sex Assigned at Not on file Legal Sex Female 4:57 PM EDT Gender Identity Female 09/09/2020 7:49 AM EDT Sexual Orientation Straight 10/21/2022 3: 04 PM EDT Last Filed Vital Signs Vital Sign Reading Time Taken Comments Blood Pressure 111/75 01/12/2024 4:34 PM EDT Pulse 78 01/12/2024 4:34 PM EDT Temperature 37.3 ??C (99.2 ??F) 01/12/2024 4:34 PM ED T Respiratory Rate - - Oxygen Saturation 100% 06/26/2011 12:00 AM EST Inhaled Oxygen Concentration - - Weight 64 kg (141 lb 3.2 oz) 01/12/2024 4:34 PM EDT Height 159.4 cm (5' 2.75 ) 10/28/2023 1:34 PM ED T Body Mass Index 25.21 10/28/2023 1:34 PM EDT Plan of Treatment Health Maintenance Due Date Last Done Comments Consider Men B Vaccine (1 of 2 - Bexsero 2-dose series) 2019 Men B Vaccine (1 of 2 - Standard) 2019 Influenza Vaccines (#1) 2023 02/10/20, 06/18/2021, 08/10/2019, Additional history exists COVID-19 Vaccine (1 - 2023-2 5 season) 2024 DTaP,Tdap,and Td Vaccines (7 - Td or Tdap) 11/29/2024 11/29/2014, 08/23/2007, 10/01/2004, Additional history exists Hepatitis B Vaccines Completed 2003, 2003, 2003 HIB Vaccines Completed 06/23/2004, 08/30, 2003, Additional history exists Pneumococcal Vaccine Completed 06/23/2004, 2003, 2003, Additional history exists IPV Vaccines Completed 08/23/2007, 08/30, 2003, Additional history exists MMR Vaccines Completed 08/23/2007, 03/18/2004 Varicella Vaccines Completed 08/23/2007, 03/18/2004 Hepatitis A Vaccines Completed 11/09/2013, 11/13/19 11 HPV Vaccines Completed 12/26/2015, 11/29/2014 Meningococcal Vaccine Completed 08/10/2019, 015 Procedures * Due to [place] state law, this organization might not be sharing sensitive test results. Procedure Name Priority Date/Time Associated Diagnosis Comments CHLAMYDIA AND GONORRHEA, AMPLIFIED Routine 10/28/2023 1:50 PM EDT Screening for chlamydial disease from Last 3 Months or Most Recently Relevant to Health Maintenance Results * Due to [place] state law, this organization might not be sharing sensitive test results. * Chlamydia and Gonorrhoea, Amplified (10/28/2023 1:50 PM EDT) C trach NOELLE Negative Negative [facility] N gonorrhoeae NOELLE Negative Negative [facility] Urine (Urine) 10/28/2023 1:5 0 PM EDT 10/28/2023 Comment:UR Narrative [facility] - 11/03/2023 2:08 PM EDT Performed at: ??01 - [facility] [place] [address], [address], [place], [place] ??[id number] Merchandise Executive: Ez Ramos MD, Phone: ??[phone] Tiffany Heath MD LAB MICROBIOLOGY - GENERAL ORDER RONNY Final Result Performing Organization Address City/State/[facility] Co de Phone Number [facility] [address] [place] [address] from Last 3 Months or Most Recently Relevant to Health Maintenance Insurance [facility] NON PCC [facility] Address: [address] [address] [place] [address] [facility] NON PCC
--- OUTSIDE RECORDS SUMMARY | 2024-06-22 17:20 | XMS_ITS | Encounter Summary ---
Author Organization [facility] Address [address] [place] [address] Phone Care Team Providers Care Cut Out And Marking Machine Operator Name Role Phone Tiffany Heath MD Primary Care Provider [phone] Encounter Details Date Type Department Care Team (Late st Contact Info) Description 08/06/2016 Documentation [facility] [place] [address] [place] [address] Family Medicine, Physician [address] [place], [place] [id number] Social History Tobacco Use Types Packs/Day Years [...] on filedocumented in this encounter Care Teams Cut Out And Marking Machine Operator Relationship Specialty Start Date End Date Tiffany Heath MD [address] [place] [address] PCP - General Pediatrics 06/25/23 03/28/24 documented as of this encounter
--- OUTSIDE RECORDS SUMMARY | 2024-06-22 17:20 | XMS_ITS | Encounter Summary ---
Author Organization [facility] Address [address] [place] [address] Phone Care Team Providers Care Jewelry Consultant Name Role Phone Tiffany Heath MD Primary Care Provider Reason for Visit * Reason Onset Date Comments Med Refill 09/17/2020 Encounter Details Date Type Department Care Team (Late st Contact Info) Description 09/17/2020 Refill [facility] [place] [address] [place] [address] Miriam Elise MD [address] [place] [address] Encounter for initial prescription of contraceptive pills Social History Tobacco Use Types Packs/Day Years [...] Diagnoses Diagnosis Encounter for initial prescription of contraceptive pills documented in this encounter Care Teams Jewelry Consultant Relationship Specialty Start Date End Date Tiffany Heath MD [address] [place] [address] PCP - General Pediatrics 06/25/23 03/28/24 documented as of this encounter
== END 2024-06-22 14:35 | disposition home or self-care (01) ==
LOC: HO.US 14:34
PROVIDERS: Visit Provider Advanced Practice Midwife
DX: Z34.91 Encounter for supervision of normal pregnancy, unspecified, first trimester (principal); Z3A.01 Less than 8 weeks gestation of pregnancy
CPT/HCPCS: 76801; 76817

== ENCOUNTER 2024-06-28 08:23 | Outpatient (AMB) | payer OTHER, SELFPAY ==
--- NOTE | 2024-06-28 08:30 | MHC.OFFVIS ---
Vital Signs 06/28/24 08:31 Height 5 ft 2 in Weight 137 lb BMI 25.1 BP 100/60 Intake Visit Reasons: Ultrasound results Intake Note: Mom Yanelis Mobile Application Engineer: Mobile Application Engineer Present Accompanied by: Mother Allergies coconut Allergy (Verified 06/28/24 08:30) Anaphylaxis Is last menstrual period known: Yes HPI Comments Details: Patient is here today for a follow up ultrasound early OB with bleeding, accompanied by her mother Yanelis. EDC is 02/07/2025 now at 8 weeks gestation. Her bleeding has stopped. She admits to nausea and does not feel the the 6 vitamins or helping as much as she had hoped. She has started to use [employer] pops and feels those are helpful. She is undecided where she wants to receive her care. [facility] Medical History (Updated 06/08/24 @ 10:13 by Mami Snow CNM) Early stage of Family History (Updated 06/08/24 @ 10:00 by TITUS Christianson) Mother History of breast cancer Social History (Updated 06/08/24 @ 10:01 by TITUS Christianson) Alcohol intake: never Patient Tobacco Use Status: Never used Tobacco Sexual orientation: Straight/Heterosexual Gender identity: Female Review of Systems Const All systems reviewed & are unremarkable except as noted in HPI and below Endo Reports no additional complaints Physical Exam Vital Signs: Last Vital Signs BP 100/60 06/28/24 08:31 BMI result Body Mass Index 25.1 Const General: cooperative, healthy appearing and no acute distress Psych Appearance: well kempt Attitude: cooperative Thought process: Normal thought process present Results Reviewed Results Reviewed: [address] [address] Ultrasound Report Signed Patient: Darcy Barclay MR#: [id number] : 2005 Acct:[id number] Age/Sex: 19 / F ADM Date: 06/22/24 Loc: HO.US Attending Dr: Mami Snow CNM Ordering Physician: Mami Snow CNM Date of Service: 06/22/24 Procedure(s): US OB pelvic and transvaginal Accession Number(s): [id number] cc: Mami Snow CNM~ EXAMINATION: US FIRST TRIMESTER OB HISTORY: Z34.90 - Encounter for supervision of normal , unspecified TECHNIQUE: Transabdominal and endovaginal scanning was performed. FINDINGS: There is a single, live intrauterine . AUA = 7 weeks 1 days RADHA(AUA) = 02/07/2025 LMP = 05/02/2024 GA(LMP) = 7 weeks 2 days RADHA(LMP) = 02/06/2025 CRL = 0.96cm Yolk Sac: seen FHR = 143bpm Right ovary: The right ovary measures 4.4 x 2.8 x 3.3 cm and demonstrates a 1.7 x 2.2 x 1.7 hypoechoic structure which likely represents the corpus luteum. Left ovary: The left ovary measures 2.3 x 2.8 x 2.3 cm and is unremarkable. Cul-de-sac: No free fluid US/US OB pelvic and transvaginal IMPRESSION: Single, live intrauterine of estimated gestational age 7 weeks, 1 day. Electronically signed by: Emil Hagen MD 06/23/2024 07:11 AM EST Dictated By: Emil Hagen MD Signed By: <Electronically signed by Emil Hagen MD in OV> 06/23/24 0711 DD/ 1453 TD/TT: 06/22/24 1508 Christmas Tree Grower: Assessment & Plan Assessment & Plan (1) Early stage of : Code(s): Z34.90 - Encounter for supervision of normal , unspecified, unspecified trimester Category: Medical Plan Discussed: Ultrasound findings an EDC confirmation. Reviewed B6 vitamins, vitamins, sea bands, dietary changes for nausea, and when to call for further evaluation if unable to keep food or fluids down. Pelvic warnings and when to call for vaginal bleeding reviewed. services within the [facility] close vicinity to include Marli Sanchez [facility]. General overall visit schedule, testing timeframe for nuchal lucency and lab work. She is agreeable to do the nuchal lucency-orders placed for [facility] to be done within 3-4 weeks. [facility] information provided, patient to research and think about options along with discussing with close family members about her care plans. She is agreeable to call within a few days with her decision whether she still continues care here or other option as discussed. [facility] information provided and encouraged to call and register. Orders: Orders US OB 1T nuc measure Today Z34.90 - Encounter for supervision of normal , unspecified, unspecified trimester Coding Level of Care Code Est Pt Level 3 (65200) Diagnoses Early stage of Z34.90
[2024-06-28 08:31] VITALS: BP 100/60; BMI 25.1
--- OUTSIDE RECORDS SUMMARY | 2024-06-28 08:35 | XMS_ITS | Encounter Summary ---
Author Organization [facility] Address [address] [place] [address] Phone Care Team Providers Care Print Color Matcher Name Role Phone Tiffany Heath MD Primary Care Provider [phone] Encounter Details Date Type Department Care Team (Late st Contact Info) Description 08/06/2016 Documentation [facility] [place] Family Medicine [address] [place] [address] Family Medicine, Physician [address] [place], [place] [address] Social History Tobacco Use Types Packs/Day Years [...] on filedocumented in this encounter Care Teams Print Color Matcher Relationship Specialty Start Date End Date Tiffany Heath MD [address] [place] [address] PCP - General Pediatrics 06/25/23 03/28/24 documented as of this encounter
--- OUTSIDE RECORDS SUMMARY | 2024-06-28 08:35 | XMS_ITS | Encounter Summary ---
Author Organization [facility] Address [address] [place] [address] Phone Care Team Providers Care Information Security Architect Name Role Phone Tiffany Heath MD Primary Care Provider [phone] Encounter Details Date Type Department Care Team (Late st Contact Info) Description 01/14/2017 Conversion Encounter [facility] [place] [address] [place] [address] Social History Tobacco Use Types Packs/Day Years [...] on filedocumented in this encounter Care Teams Information Security Architect Relationship Specialty Start Date End Date Tiffany Heath MD [address] [place] [address] PCP - General Pediatrics 06/25/23 03/28/24 documented as of this encounter
--- OUTSIDE RECORDS SUMMARY | 2024-06-28 08:35 | XMS_ITS | Encounter Summary ---
Author Organization [facility] Address [address] [place] [address] Phone Care Team Providers Care Cone Cleaner Name Role Phone Tiffany Heath MD Primary Care Provider [phone] Encounter Details Date Type Department Care Team (Late st Contact Info) Description 05/08/2011 Documentation [facility] [place] [address] [place] [address] Family Medicine, Physician [address] [place], [place] [address] Social History Tobacco Use Types Packs/Day Years [...] on filedocumented in this encounter Care Teams Cone Cleaner Relationship Specialty Start Date End Date Tiffany Heath MD [address] [place] [address] PCP - General Pediatrics 06/25/23 03/28/24 documented as of this encounter
--- OUTSIDE RECORDS SUMMARY | 2024-06-28 08:36 | XMS_ITS | Encounter Summary ---
Author Organization [facility] Address [address] [place] [address] Phone Care Team Providers Care Palaeontologist Name Role Phone Tiffany Heath MD Primary Care Provider [phone] Reason for Visit * Reason Onset Date Comments Med Refill 09/17/2020 Encounter Details Date Type Department Care Team (Late st Contact Info) Description 09/17/2020 Refill [facility] [place] [address] [place] [address] Miriam Elise MD [address] [place] [address] Encounter for initial prescription of contraceptive pills [...] pills documented in this encounter Care Teams Palaeontologist Relationship Specialty Start Date End Date Tiffany Heath MD [address] [place] [address] PCP - General Pediatrics 06/25/23 03/28/24 documented as of this encounter
--- OUTSIDE RECORDS SUMMARY | 2024-06-28 08:36 | XMS_ITS | Encounter Summary ---
Author Organization [facility] Address [address] [place] [address] Phone Care Team Providers Care Fitness Centre Manager Name Role Phone Tiffany Heath MD Primary Care Provider [phone] Encounter Details Date Type Department Care Team (Late st Contact Info) Description 06/29/2011 Documentation [facility] [place] [address] [place] [address] Family Medicine, Physician [address] [place], [place] [address] Social History Tobacco Use Types Packs/Day Years [...] on filedocumented in this encounter Care Teams Fitness Centre Manager Relationship Specialty Start Date End Date Tiffany Heath MD [address] [place] [address] PCP - General Pediatrics 06/25/23 03/28/24 documented as of this encounter
--- OUTSIDE RECORDS SUMMARY | 2024-06-28 08:36 | XMS_ITS | Continuity of Care Document ---
Author Organization [facility] ter Address [address] [place] [address]- Care Team Providers Care Salvage Determiner Name Role Phone Not on Staff, PCP Primary Care Physician Unavail able [place] [facility] [place]15[place] - 06/15/[address] [address]- Discharge Disposition: A-D/C Home Attending Physician: Maryam Richter MD Admitting Physician: Maryam Richter MD Referring Physician: Not on Staff, Referring MD Encounter Type: Disch ES Allergies, Adverse Reactions, Alerts No Known Allergies Vital Signs Most recent to oldest [Reference Range]: 1 2 Height 158 cm (06/15/24 5:08 PM) 158 cm (06/15/24 3:57 PM) Weight 64.5 kg (06/15/24 5:08 PM) 64.5 kg (06/15/24 3:57 PM) Oxygen Saturation [94-100 %] 100 % (06/15/24 3:57 PM) Pulse Rate [55-90 bpm] 62 bpm (06/15/24 3:57 PM) Body Mass Index [18.5-24.99 kg/m2] 25.84 kg/m2 *H* (06/15/24 3:57 PM) Blood Pressure [90-138/55-84 mm Hg] 107/ 67mm Hg (06/15/24 3:57 PM) Respiratory Rate [16-30 br/min] 18 br/mi n (06/15/24 3:57 PM) Temperature [96.8-100.4 DegF] 98.3 DegF (06/15/24 3:57 PM) Mode of Delivery (Oxygen) Room air (06/15/24 3:57 PM) Blood pressure sites Arm, left (06/15/24 3:57 PM) Temperature Route Oral (06/15/24 3:57 PM) Dry Weight 64.5 kg (06/15/24 5:08 PM) 64.5 kg (06/15/24 3:57 PM) Weight Obtained Via Patient/family state d (06/15/24 3:57 PM) Dry Weight Obtained Via Patient/family s tated (06/15/24 3:57 PM) Patient Care team information Care Team Personnel Name: Not on Staff, PCP Position: S Physician (General Medicine) Member Role: PCP Insurance Providers Guarantor name: NA Health Plan Information #: 1 Payer: [employer] Member Number: [id number] Policy Number: NA Group Number: [facility] Health Plan Information #: 2 Payer: [employer] Member Number: [id number] Policy Number: ANUJ Group Number: NA
--- OUTSIDE RECORDS SUMMARY | 2024-06-28 08:36 | XMS_ITS | Clinical Summary ---
Author Organization [facility] Address [address] [place] [address] Phone Care Team Providers Care Hand Laster Name Role Phone Unavailable Primary Care Provider [...] and depression., started seeing therapist Fer at [facility], for one year, then stopped. 01/12/24: Rating [...] Health Maintenance Due Date Last Done Comments Men B Vaccine (1 of 2 - Standard) 2019 Influenza Vaccines (#1) 2023 02/10/20, 06/18/2021, 08/10/2019, Additional history exists COVID-19 Vaccine ( - 2023-2 5 season) 2024 DTaP,Tdap,and Td [...] Completed 08/10/2019, 015 Procedures * Due to [place] state law, this organization might not be sharing sensitive test results. Procedure Name Priority Date/Time Associated Diagnosis Comments CHLAMYDIA AND GONORRHEA, AMPLIFIED Routine 10/28/2023 1:50 PM EDT Screening for chlamydial disease from Last 3 Months or Most Recently Relevant to Health Maintenance Results * Due to [place] state law, this organization might not be sharing sensitive test results. * Chlamydia and Gonorrhoea, Amplified (10/28/2023 1:50 PM EDT) C trach NOELLE Negative Negative [facility] N gonorrhoeae NOELLE Negative Negative [facility] Urine (Urine) 10/28/2023 1:5 0 PM EDT 10/28/2023 Comment:UR Narrative [facility] - 11/03/2023 2:08 PM EDT Performed at: ??01 - [facility] [place] [address] [address], [address], [place], [place] ??[id number] Personal Lines Advisor: Ez Ramos MD, Phone: ??[phone] us Tiffany Heath MD LAB MICROBIOLOGY - GENERAL ORDER RONNY Final Result [facility] [address] [place] [address] from Last 3 Months or Most Recently Relevant to Health Maintenance Insurance [facility] NON PCC [facility] ACO [facility] NON PCC
--- OUTSIDE RECORDS SUMMARY | 2024-06-28 08:36 | XMS_ITS | Encounter Summary ---
Author Organization [facility] Address [address] [place] [address] Phone Care Team Providers Care Bellmaker Name Role Phone Tiffany Heath MD Primary Care Provider [phone] Reason for Visit * Reason Onset Date Comments Med Refill 04/24/2020 Encounter Details Date Type Department Care Team (Late st Contact Info) Description 04/24/2020 Refill [facility] [place] [address] [place] [address] Miriam Elise MD [address] [place] [address] Encounter for initial prescription of injectable contraceptive [...] contraceptive documented in this encounter Care Teams Bellmaker Relationship Specialty Start Date End Date Tiffany Heath MD [address] [place] [address] PCP - General Pediatrics 06/25/23 03/28/24 documented as of this encounter
== END 2024-06-28 10:33 | disposition home or self-care (01) ==
LOC: HO.HWS 08:23
PROVIDERS: PCP Pediatrics; Visit Provider Advanced Practice Midwife
DX: Z34.90 Encounter for supervision of normal pregnancy, unspecified, unspecified trimester (principal)
CPT/HCPCS: 99213

== ENCOUNTER → 2024-06-28 08:23 | Outpatient (BNVA) | payer OTHER, SELFPAY | PROVIDERS: PCP Pediatrics; Visit Provider Advanced Practice Midwife | DX: O26.891 Other specified pregnancy related conditions, first trimester (principal); R11.0 Nausea; Z3A.08 8 weeks gestation of pregnancy | CPT/HCPCS: 99212 ==

== ENCOUNTER 2024-07-05 14:51 | Outpatient (REF) | payer OTHER, SELFPAY | END 2024-07-05 14:52 | disposition home or self-care (01) | LOC: HO.US 14:51 | PROVIDERS: PCP Pediatrics; Visit Provider Advanced Practice Midwife | DX: Z13.89 Encounter for screening for other disorder (principal) ==

== ENCOUNTER 2024-07-21 10:12 | Outpatient (AMB) | payer OTHER, SELFPAY ==
[2024-07-21 10:44] VITALS: BMI 24.9
--- NOTE | 2024-07-21 10:44 | MHC.OFFVISPN ---
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: No Accompanied by: Mother Allergies coconut Allergy (Verified 07/21/24 10:54) Anaphylaxis Medication List - Last Reconciled 07/21/24 by Mine Ding doxylamine-pyridoxine (vit B6) 20-20 mg 1 tab PO BID PRN mv-mn no.[id number]-eus-herb 293 120 mcg-25 mg- 66.7 mg (Alive Premium ) 1 tab PO DAILY Is last menstrual period known: Yes Last menstrual period: 05/03/24 Post menopausal: No Patient : Yes [facility] Medical History (Updated 07/21/24 @ 12:02 by Mine Ding) Nausea and vomiting in Encounter for supervision of normal first , unspecified trimester Early stage of Family History (Updated 07/21/24 @ 12:10 by Mine Ding) Mother History of breast cancer Sister Thyroid carcinoma Maternal Grandfather No problems noted. Paternal Grandfather CAD (coronary artery disease) Social History (Updated 07/21/24 @ 11:55 by Mine Ding) Both parents involved: Yes Caregiver staying overnight: No Alcohol intake: never Patient Tobacco Use Status: Never used Tobacco Agree to transfusion: Yes Sexual orientation: Straight/Heterosexual Gender identity: Female Cognitive needs: No Hearing needs: No Vision needs: No Female Reproductive History Menstrual Age of Menarche: 11 Duration of menses: 3-5 days Date of last menstrual period: 05/03/24 control method: pills Total pregnancies: 1 History of STI: No History History 1 Elective abortions Para 0 Spontaneous abortions Hx # Term Pregnancies Ectopic pregnancies Hx # Pregnancies Multiple births Education First Trimester Education Checklist Plans/Education - by Trimester Counseled: Yes HIV and other routine tests: discussed Infectious disease exposure: chicken pox immunity discussed and hepatitis risk discussed Influenza vaccine: further discussion needed Nutrition and weight gain counseling: special diet: discussed Sexual activity: discussed Exercise: discussed Tobacco use: No Alcohol use: No Use of any medications (including supplements, vitamins, herbs, or OTC drugs): discussed Substance use: No Environmental/home/work hazards: discussed Domestic violence: discussed Travel: discussed Seatbelt use: discussed Toxoplasmosis precautions (cats/raw meat): discussed Childbirth education/discussion: symptoms education/discussion Risk factors identified by history: discussed danger signs: Yes education packet: Child education class information, symptoms, vitamins and iron, diet and weight gain, fish and mercury intake, listeriosis prevention, caffeine use, exercise and activity, sexual activity, x-ray exposure, medication use, toxoplasmosis precautions and dental care Mental health: discussed Anticipated course of care: discussed Indications for ultrasound: discussed Health center information: visit schedule reviewed, coverage 24 hours a day, participation of father in care and office visits and signs of miscarriage reviewed Questionnaire History History Mother's age: 21 Hx Total # of Abortions (Spontaneous & Elective): 0 : 1 Para: 0 Complications care started at (1-40 weeks or none): 5 weeks Visit RADHA Calculator Estimated Delivery Date Method Current WG Current Estimate 02/07/25 LMP (Certain) 11w 2d Other Estimates 02/07/25 Ultrasound #1 11w 2d Expected Delivery Route/Plan Specific Issues/Plans Pt is planning to breast feed OB Visit Log Initial Weight: 125 lb Date <del>?</del> EGA Weight Gest Week Fundal Ht Present FHR move Efface % Edema BP PrePreg We Weight GTT <del>?</del> Glucose LV Protein Blood Type 07/21/24 <del>?</del> 11w 2d 136 lb 4 oz (+11 lb 4 oz) 136 lb 4 oz <del>?</del> Notes Visit Date: 07/21/24 Last Updated by: Mine Lukewilner Taveras is here with her step Mom, 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 LMP 05/03/24 RADHA by dates 02/07/25 and GA today 11w2d. US on 06/22/24 at 7w1d agrees with RADHA 02/07/25. This is Darcy's first and she is feeling well except for nausea/vomiting daily. She is taking Vitamin B6 tid and PNVs daily, before bed. She does not feel the Vit B6 is helping as she continues to have nausea and vomiting. She has gained weight (prepregnancy 125 lbs and she has been maintaining her weight at 136-137 lbs, BMI is 24.9). She is able to take apples, apple juice, water, Preggy pops . Darcy is aware to go to ED if she cannot keep anything down for 12 hrs or more. We did discuss use of Unisom in addition to B6. FOB is Scot and Darcy notes they are very excited and cSot is very supportive. She was given the folder, we discussed first trimester education, danger signs, how to reach voice data communications engineer provider after hours. labs ordered and pt will schedule OB PE. All of Darcy's and her Mom's questions were answered to the best of my ability. Darcy will call back with any questions or concerns. Initial Infection History & Risk Profile History of STDs: No HIV risk evaluation: low risk Hepatitis B risk evaluation: low risk Patient or partner has history of Genital Herpes: No Varicella/chicken pox status: unknown Genetic Screening & Information Security Architect Genetic Screening/Teratology Counseling - Includes patient, baby's father, or anyone in either family with: 1. Patient's age 35 years or older as of estimated date of delivery: No 2. Thalassemia (Japanese, Ukrainian, Mediterranean, or Background); MCV less than 80: No 3. Neural Tube Defect (Meningomyelocele, Spina Bifida, or Anencephaly): No 4. Congenital Heart Defect: No 5. Down Syndrome: No 6. Jorge-Sachs (Ashkenazi Latter-Day, Cajun, Azeri [place]): No 7. Scotty Disease (Ashkenazi Latter-Day): No 8. Familial Dysautonomia (Ashkenazi Latter-Day): No 9. Sickle Cell Disease or Trait (): No 10. Hemophilia or other blood disorders: No 11. Muscular Dystrophy: No 12. Cystic Fibrosis: No 13. Weston's Chorea: No 14. Intellectual disability/Autism: No 15. Other inherited genetic or chromosomal disorder: No 16. Maternal Metabolic Disorder (EG,TYPE 1 Diabetes, PKU): No 17. Patient or baby's father had a child with defects not listed above: No 18. Recurrent loss or a stillbirth: No 19. Medications (including supplements, vitamins, herbs or otc drugs)/illicit/recreational drugs/alcohol since last menstrual period: No 20. Any other: No Infection History 1. Live with someone with TB or exposed to TB: No 2. Rash or viral illness since last menstrual period: No 3. Hepatitis B,C: No Other (see comments) Source: [employer] Coding Level of Care Code Established Pt Xu Patient Type Established History Problem Focused Medical Decision Making Low Complexity Diagnoses Early stage of Z34.90 Encounter for supervision of normal first , unspecified trimester Z34.00 Nausea and vomiting in O21.9 Time Spent (min) 60 Assessment & Plan Assessment & Plan (1) Early stage of : Code(s): Z34.90 - Encounter for supervision of normal , unspecified, unspecified trimester Category: Medical Plan: labs ordered, OB PE scheduled, NT US 07/20/24 (no report at this time) (2) Encounter for supervision of normal first , unspecified trimester: Code(s): Z34.00 - Encounter for supervision of normal first , unspecified trimester Category: Medical (3) Nausea and vomiting in : Comment: Pt is maintaining her current weight of 136-137 lbs Prepregnancy weight 123 lbs Code(s): O21.9 - Vomiting of , unspecified Category: Medical
--- OUTSIDE RECORDS SUMMARY | 2024-07-21 10:55 | XMS_ITS | Clinical Summary ---
Author Organization [facility] Address [address] [place] [address] Phone Care Team Providers Care Pattern Grader Supervisor Name Role Phone Unavailable Primary Care Provider [...] and depression., started seeing therapist Fer at [facility], for one year, then stopped. [...] No issues Rare need for albuterol Immunizations Immunization Administration Dates Next Due DTaP 5 08/23/2007, [...] 10/28/2023 Missing School or Work Answer Date Jeses rded Did you or your child miss [...] Completed 08/10/2019, 015 Procedures * Due to [place] state law, this organization might not be sharing sensitive test results. Procedure Name Priority Date/Time Associated Diagnosis Comments CHLAMYDIA AND GONORRHEA, AMPLIFIED Routine 10/28/2023 1:50 PM EDT Screening for chlamydial disease from Last 3 Months or Most Recently Relevant to Health Maintenance Results * Due to [place] state law, this organization might not be sharing sensitive test results. * Chlamydia and Gonorrhoea, Amplified (10/28/2023 1:50 PM EDT) C trach NOELLE Negative Negative [facility] N gonorrhoeae NOELLE Negative Negative [facility] Urine (Urine) 10/28/2023 1:5 0 PM EDT 10/28/2023 Comment:UR Narrative [facility] - 11/03/2023 2:08 PM EDT Performed at: ??01 - [facility] [place] [address] [address], [address], [place], [place] ??[id number] Low Altitude Air Defense Officer: Ez Ramos MD, Phone: ??[phone] us Tiffany Heath MD LAB MICROBIOLOGY - GENERAL ORDER RONNY Final Result [facility] [address] [place] [address] from Last 3 Months or Most Recently Relevant to Health Maintenance Insurance [facility] NON PCC [facility] ACO [facility] NON PCC
--- OUTSIDE RECORDS SUMMARY | 2024-07-21 10:55 | XMS_ITS | Encounter Summary ---
Author Organization [facility] Address [address] [place] [address] Phone Care Team Providers Care Seat Maker Name Role Phone Tiffany Heath MD Primary Care Provider [phone] Reason for Visit * Reason Onset Date Comments Med Refill 09/17/2020 Encounter Details Date Type Department Care Team (Late st Contact Info) Description 09/17/2020 Refill [facility] [place] [address] [place] [address] Miriam Elise MD [address] [place] [address] Encounter for initial prescription of contraceptive pills [...] pills documented in this encounter Care Teams Seat Maker Relationship Specialty Start Date End Date Tiffany Heath MD [address] [place] [address] PCP - General Pediatrics 06/25/23 03/28/24 documented as of this encounter
--- OUTSIDE RECORDS SUMMARY | 2024-07-21 10:55 | XMS_ITS | Encounter Summary ---
Author Organization [facility] Address [address] [place] [address] Phone Care Team Providers Care Social Work Faculty Member Name Role Phone Tiffany Heath MD Primary Care Provider [phone] Encounter Details Date Type Department Care Team (Late st Contact Info) Description 05/08/2011 Documentation [facility] [place] [address] [place] [address] Family Medicine, Physician [address], [place] [address] Social History Tobacco Use Types Packs/Day Years [...] on filedocumented in this encounter Care Teams Social Work Faculty Member Relationship Specialty Start Date End Date Tiffany Heath MD [address] [place] [address] PCP - General Pediatrics 06/25/23 03/28/24 documented as of this encounter
--- OUTSIDE RECORDS SUMMARY | 2024-07-21 10:55 | XMS_ITS | Encounter Summary ---
Author Organization [facility] Address [address] [place] [address] Phone Care Team Providers Care Charge Weigher Name Role Phone Tiffany Heath MD Primary Care Provider [phone] Encounter Details Date Type Department Care Team (Late st Contact Info) Description 08/06/2016 Documentation [facility] Family Medicine [address] [place] [address] Family Medicine, Physician [address] [place], [place] [address] Social History Tobacco Use Types Packs/Day Years [...] on filedocumented in this encounter Care Teams Charge Weigher Relationship Specialty Start Date End Date Tiffany Heath MD [address] [place] [address] PCP - General Pediatrics 06/25/23 03/28/24 documented as of this encounter
--- OUTSIDE RECORDS SUMMARY | 2024-07-21 10:55 | XMS_ITS | Encounter Summary ---
Author Organization [facility] Address [address] [place] [address] Phone Care Team Providers Care Automobile Body Repairer Name Role Phone Tiffany Heath MD Primary Care Provider [phone] Encounter Details Date Type Department Care Team (Late st Contact Info) Description 06/29/2011 Documentation [facility] [place] [address] [place] [address] Family Medicine, Physician [address] [place], [place] [address] Social History Tobacco Use Types Packs/Day Years [...] on filedocumented in this encounter Care Teams Automobile Body Repairer Relationship Specialty Start Date End Date Tiffany Heath MD [address] [place] [address] PCP - General Pediatrics 06/25/23 03/28/24 documented as of this encounter
--- OUTSIDE RECORDS SUMMARY | 2024-07-21 10:55 | XMS_ITS | Encounter Summary ---
Author Organization [facility] Address [address] [place] [address] Phone Care Team Providers Care Service Parts Coordinator Name Role Phone Tiffany Heath MD Primary Care Provider [phone] Encounter Details Date Type Department Care Team (Late st Contact Info) Description 01/14/2017 Conversion Encounter [facility] [place] [address] [place] [address] Social History Tobacco Use Types Packs/Day Years [...] on filedocumented in this encounter Care Teams Service Parts Coordinator Relationship Specialty Start Date End Date Tiffany Heath MD [address] [place] [address] PCP - General Pediatrics 06/25/23 03/28/24 documented as of this encounter
--- OUTSIDE RECORDS SUMMARY | 2024-07-21 10:55 | XMS_ITS | Encounter Summary ---
Author Organization [facility] Address [address] [place] [address] Phone Care Team Providers Care Bleach Boiler Puller Name Role Phone Tiffany Heath MD Primary Care Provider [phone] Reason for Visit * Reason Onset Date Comments Med Refill 04/24/2020 Encounter Details Date Type Department Care Team (Late st Contact Info) Description 04/24/2020 Refill [facility] [place] [address] [place] [address] Miriam Elise MD [address] [place] [address] Encounter for initial prescription of injectable contraceptive [...] contraceptive documented in this encounter Care Teams Bleach Boiler Puller Relationship Specialty Start Date End Date Tiffany Heath MD [address] [place] [address] PCP - General Pediatrics 06/25/23 03/28/24 documented as of this encounter
== END 2024-07-21 13:34 | disposition home or self-care (01) ==
LOC: HO.HWS 10:12
PROVIDERS: PCP Pediatrics; Visit Provider Advanced Practice Midwife
DX: Z34.90 Encounter for supervision of normal pregnancy, unspecified, unspecified trimester (principal); Z34.00 Encounter for supervision of normal first pregnancy, unspecified trimester; O21.9 Vomiting of pregnancy, unspecified
CPT/HCPCS: 25942

== ENCOUNTER → 2024-07-21 10:12 | Outpatient (BNVA) | payer OTHER, SELFPAY | PROVIDERS: PCP Pediatrics; Visit Provider Advanced Practice Midwife | DX: Z34.01 Encounter for supervision of normal first pregnancy, first trimester (principal); O21.9 Vomiting of pregnancy, unspecified; Z3A.11 11 weeks gestation of pregnancy | CPT/HCPCS: 99212 ==

== ENCOUNTER 2024-07-22 09:28 | Outpatient (REF) | payer OTHER, SELFPAY ==
--- OUTSIDE RECORDS SUMMARY | 2024-07-22 09:30 | XMS_ITS | Clinical Summary ---
Author Organization [facility] Address [address] [place] [address] Phone Care Team Providers Care Equipment Specialist Name Role Phone Unavailable Primary Care Provider [...] and depression., started seeing therapist Fer at [facility], for one year, then stopped. [...] Completed 08/10/2019, 015 Procedures * Due to [place] state law, this organization might not be sharing sensitive test results. Procedure Name Priority Date/Time Associated Diagnosis Comments CHLAMYDIA AND GONORRHEA, AMPLIFIED Routine 10/28/2023 1:50 PM EDT Screening for chlamydial disease from Last 3 Months or Most Recently Relevant to Health Maintenance Results * Due to [place] state law, this organization might not be sharing sensitive test results. * Chlamydia and Gonorrhoea, Amplified (10/28/2023 1:50 PM EDT) C trach NOELLE Negative Negative [facility] N gonorrhoeae NOELLE Negative Negative [facility] Urine (Urine) 10/28/2023 1:5 0 PM EDT 10/28/2023 Comment:UR Narrative [facility] - 11/03/2023 2:08 PM EDT Performed at: ??01 - [facility] [place] [address], [address], [place], [place] ??[id number] Quality Process Lead: Ez Ramos MD, Phone: ??[phone] us Tiffany Heath MD LAB MICROBIOLOGY - GENERAL ORDER RONNY Final Result [facility] [address] [place] [address] from Last 3 Months or Most Recently Relevant to Health Maintenance Insurance [facility] NON PCC [facility] ACO [facility] NON PCC
--- OUTSIDE RECORDS SUMMARY | 2024-07-22 09:30 | XMS_ITS | Encounter Summary ---
Author Organization [facility] Address [address] [place] [address] Phone Care Team Providers Care Vegetable Preparer Name Role Phone Tiffany Heath MD Primary Care Provider [phone] Encounter Details Date Type Department Care Team (Late st Contact Info) Description 08/06/2016 Documentation [facility] [place] Family Medicine [address] [place] [address] Family Medicine, Physician [address] [place], [place] [address] Social History Tobacco Use Types Packs/Day Years [...] on filedocumented in this encounter Care Teams Vegetable Preparer Relationship Specialty Start Date End Date Tiffany Heath MD [address] [place] [address] PCP - General Pediatrics 06/25/23 03/28/24 documented as of this encounter
--- OUTSIDE RECORDS SUMMARY | 2024-07-22 09:30 | XMS_ITS | Encounter Summary ---
Author Organization [facility] Address [address] [place] [address] Phone Care Team Providers Care Delivery Driver/Customer Service Name Role Phone Tiffany Heath MD Primary Care Provider [phone] Reason for Visit * Reason Onset Date Comments Med Refill 09/17/2020 Encounter Details Date Type Department Care Team (Late st Contact Info) Description 09/17/2020 Refill [facility] [place] [address] [place] [address] Miriam Elise MD [address] [place] [address] Encounter for initial prescription of contraceptive pills [...] pills documented in this encounter Care Teams Delivery Driver/Customer Service Relationship Specialty Start Date End Date Tiffany Heath MD [address] [place] [address] PCP - General Pediatrics 06/25/23 03/28/24 documented as of this encounter
--- OUTSIDE RECORDS SUMMARY | 2024-07-22 09:30 | XMS_ITS | Encounter Summary ---
Author Organization [facility] Address [address] [place] [address] Phone Care Team Providers Care Oil Field Worker Name Role Phone Tiffany Heath MD Primary Care Provider [phone] Encounter Details Date Type Department Care Team (Late st Contact Info) Description 01/14/2017 Conversion Encounter [facility] [place] [address] [place] [address] Social History Tobacco Use Types Packs/Day Years [...] on filedocumented in this encounter Care Teams Oil Field Worker Relationship Specialty Start Date End Date Tiffany Heath MD [address] [place] [address] PCP - General Pediatrics 06/25/23 03/28/24 documented as of this encounter
--- OUTSIDE RECORDS SUMMARY | 2024-07-22 09:30 | XMS_ITS | Encounter Summary ---
Author Organization [facility] Address [address] [place] [address] Phone Care Team Providers Care Retail Client Manager Name Role Phone Tiffany Heath MD Primary Care Provider [phone] Reason for Visit * Reason Onset Date Comments Med Refill 04/24/2020 Encounter Details Date Type Department Care Team (Late st Contact Info) Description 04/24/2020 Refill [facility] [place] [address] [place] [address] Miriam Elise MD [address] [place] [address] Encounter for initial prescription of injectable contraceptive [...] contraceptive documented in this encounter Care Teams Retail Client Manager Relationship Specialty Start Date End Date Tiffany Heath MD [address] [place] [address] PCP - General Pediatrics 06/25/23 03/28/24 documented as of this encounter
--- OUTSIDE RECORDS SUMMARY | 2024-07-22 09:30 | XMS_ITS | Encounter Summary ---
Author Organization [facility] Address [address] [place] [address] Phone Care Team Providers Care Engine Lathe Operator Name Role Phone Tiffany Heath MD Primary Care Provider [phone] Encounter Details Date Type Department Care Team (Late st Contact Info) Description 05/08/2011 Documentation [facility] [place] Family Medicine [address] [place] [address] Family Medicine, Physician [address] [place], [place] [address] Social History Tobacco Use Types Packs/Day Years [...] on filedocumented in this encounter Care Teams Engine Lathe Operator Relationship Specialty Start Date End Date Tiffany Heath MD [address] [place] [address] PCP - General Pediatrics 06/25/23 03/28/24 documented as of this encounter
--- OUTSIDE RECORDS SUMMARY | 2024-07-22 09:31 | XMS_ITS | Encounter Summary ---
Author Organization [facility] Address [address] [place] [address] Phone Care Team Providers Care Oracle Consultant Name Role Phone Tiffany Heath MD Primary Care Provider [phone] Encounter Details Date Type Department Care Team (Late st Contact Info) Description 06/29/2011 Documentation [facility] [place] Family Medicine [address] [place] [address] Family Medicine, Physician [address] [place], [place] [address]131 Social History Tobacco Use Types Packs/Day Years [...] on filedocumented in this encounter Care Teams Oracle Consultant Relationship Specialty Start Date End Date Tiffany Heath MD [address] [place] [address] PCP - General Pediatrics 06/25/23 03/28/24 documented as of this encounter
[2024-07-22 10:22] LABS: Hematocrit 37.5 % (37.0-47.0); Hemoglobin 12.6 g/dl (12.0-16.0); Mean Corpuscular HGB Conc 33.6 g/dl (31.0-35.0); Mean Corpuscular Hemoglobin 29.1 pg (27.0-33.0); Mean Corpuscular Volume 86.6 fL (80.0-98.0); Mean Platelet Volume 10.4 fL (9.4-12.3); Platelet Count 179 X10*3/uL (160-400); Red Blood Count 4.33 X10*6/uL (4.20-5.50); Red Cell Distribution Width 13.3 % (11.0-16.0); White Blood Count 6.9 X10*3/uL (4.8-10.8)
[2024-07-22 11:16] LABS: Amphetamine Screen Urine Not Detected (Not Detect); Barbiturates, Urine Not Detected (Not Detect); Benzodiazepines Screen Urine Not Detected (Not Detect); Buprenorphine Scr Not Detected (Not Detect); Cannabinoid Screen Urine Not Detected (Not Detect); Cocaine Screen Urine Not Detected (Not Detect); Fentanyl, urine Not Detected (Not Detect); Methadone Screen, Urine Not Detected (Not Detect); Opiate Screen Urine Not Detected (Not Detect); Oxycodone Screen Urine Not Detected (Not Detect); Phencyclidine Screen Urine Not Detected (Not Detect)
[2024-07-22 11:49] LABS: HBsAGNum1 0.36 S/CO (0.00-0.99); HIV AB/AG Nonreactive (Nonreactive); HIV Num 1 0.06 S/CO (0.00-0.99); Hepatitis B Surface Antigen Negative (Negative); Syphilis Screen Nonreactive (Nonreactive); ~HepC Num1 0.15 S/CO (0.00-0.79); ~Hepatitis C Antibody Nonreactive (Nonreactive)
[2024-07-24 22:43] LABS: Varicella IgG Antibody 2.83 S/CO
[2024-07-24 22:47] LABS: Rubella IgG Antibody 1.48 Index
[2024-07-31 14:37] LABS: CF Ethnicity NG; Cystic Fibrosis NEGATIVE
== END 2024-07-22 09:29 | disposition home or self-care (01) ==
LOC: HO.LAB 09:28
PROVIDERS: Visit Provider Advanced Practice Midwife
DX: Z34.00 Encounter for supervision of normal first pregnancy, unspecified trimester (principal)
CPT/HCPCS: 80307; 81220; 85027; 86762; 86780; 86787; 86803; 86850; 86900; 87086; 87340; 87389

== ENCOUNTER 2024-07-27 09:01 | Outpatient (REF) | payer OTHER, SELFPAY ==
--- OUTSIDE RECORDS SUMMARY | 2024-07-27 11:15 | XMS_ITS | Encounter Summary ---
Author Organization [facility] Address [address] [place] [address] Phone Care Team Providers Care Workcell Operator Name Role Phone Tiffany Heath MD Primary Care Provider [phone] Encounter Details Date Type Department Care Team (Late st Contact Info) Description 06/29/2011 Documentation [facility] [place] [address] [place] [address] Family Medicine, Physician [address] [place], [place] [address]1691 Social History Tobacco Use Types Packs/Day Years [...] on filedocumented in this encounter Care Teams Workcell Operator Relationship Specialty Start Date End Date Tiffany Heath MD [address] [place] [address] PCP - General Pediatrics 06/25/23 03/28/24 documented as of this encounter
--- OUTSIDE RECORDS SUMMARY | 2024-07-27 11:15 | XMS_ITS | Encounter Summary ---
Author Organization [facility] Address [address] [place] [address] Phone Care Team Providers Care Boilermaker Ship Name Role Phone Tiffany Heath MD Primary Care Provider [phone] Reason for Visit * Reason Onset Date Comments Med Refill 04/24/2020 Encounter Details Date Type Department Care Team (Late st Contact Info) Description 04/24/2020 Refill [facility] [place] [address] [place] [address] Miriam Elise MD [address] [place] [address] Encounter for initial prescription of injectable contraceptive [...] contraceptive documented in this encounter Care Teams Boilermaker Ship Relationship Specialty Start Date End Date Tiffany Heath MD [address] [place] [address] PCP - General Pediatrics 06/25/23 03/28/24 documented as of this encounter
--- OUTSIDE RECORDS SUMMARY | 2024-07-27 11:15 | XMS_ITS | Encounter Summary ---
Author Organization [facility] Address [address] [place] [address] Phone Care Team Providers Care Pit Clerk Name Role Phone Tiffany Heath MD Primary Care Provider Encounter Details Date Type Department Care Team (Late st Contact Info) Description 08/06/2016 Documentation [facility] [place] Family Medicine [address] [place] [address] Family Medicine, Physician [address] [place], [place] 6[address]71 Social History Tobacco Use Types Packs/Day Years [...] on filedocumented in this encounter Care Teams Pit Clerk Relationship Specialty Start Date End Date Tiffany Heath MD [address] [place] [address] PCP - General Pediatrics 06/25/23 03/28/24 documented as of this encounter
--- OUTSIDE RECORDS SUMMARY | 2024-07-27 11:15 | XMS_ITS | Encounter Summary ---
Author Organization [facility] Address [address] [place] [address] Phone Care Team Providers Care Payroll Benefits Clerk Name Role Phone Tiffany Heath MD Primary Care Provider [phone] Encounter Details Date Type Department Care Team (Late st Contact Info) Description 05/08/2011 Documentation [facility] [place] Medicine [address] [place] [address] Family Medicine, Physician [address] [place], [place] [address]81 Social History Tobacco Use Types Packs/Day Years [...] on filedocumented in this encounter Care Teams Payroll Benefits Clerk Relationship Specialty Start Date End Date Tiffany Heath MD [address] [place] [address] PCP - General Pediatrics 06/25/23 03/28/24 documented as of this encounter
--- OUTSIDE RECORDS SUMMARY | 2024-07-27 11:15 | XMS_ITS | Clinical Summary ---
Author Organization [facility] Address [address] [place] [address] Phone Care Team Providers Care Movie Theater Usher Name Role Phone Unavailable Primary Care Provider [...] depression., started seeing therapist Fer at [facility], for one year, then stopped. [...] Completed 08/10/2019, 015 Procedures * Due to [place] state law, this organization might not be sharing sensitive test results. Procedure Name Priority Date/Time Associated Diagnosis Comments CHLAMYDIA AND GONORRHEA, AMPLIFIED Routine 10/28/2023 1:50 PM EDT Screening for chlamydial disease from Last 3 Months or Most Recently Relevant to Health Maintenance Results * Due to [place] state law, this organization might not be sharing sensitive test results. * Chlamydia and Gonorrhoea, Amplified (10/28/2023 1:50 PM EDT) C trach NOELLE Negative Negative [facility] N gonorrhoeae NOELLE Negative Negative [facility] Urine (Urine) 10/28/2023 1:5 0 PM EDT 10/28/2023 Comment:UR Narrative [facility] - 11/03/2023 2:08 PM EDT Performed at: ??01 - [facility] [place] [address], [address], [place], [place] ??[id number] Certified Registered Nurse Anesthetist: Ez Ramos MD, Phone: ??[phone] us Tiffany Heath MD LAB MICROBIOLOGY - GENERAL ORDER RONNY Final Result [facility] [address] [place] [address] from Last 3 Months or Most Recently Relevant to Health Maintenance Insurance [facility] NON PCC [facility] ACO [facility] NON PCC
--- OUTSIDE RECORDS SUMMARY | 2024-07-27 11:15 | XMS_ITS | Encounter Summary ---
Author Organization [facility] Address [address] [place] [address] Phone Care Team Providers Care Beekeeper Name Role Phone Tiffany Heath MD Primary Care Provider [phone] Reason for Visit * Reason Onset Date Comments Med Refill 09/17/2020 Encounter Details Date Type Department Care Team (Late st Contact Info) Description 09/17/2020 Refill [facility] [place] [address] [place] [address] Miriam Elise MD [address] [place] [address] Encounter for initial prescription of contraceptive pills [...] pills documented in this encounter Care Teams Beekeeper Relationship Specialty Start Date End Date Tiffany Heath MD [address] [place] [address] PCP - General Pediatrics 06/25/23 03/28/24 documented as of this encounter
--- OUTSIDE RECORDS SUMMARY | 2024-07-27 11:15 | XMS_ITS | Encounter Summary ---
Author Organization [facility] Address [address] [place] [address] Phone Care Team Providers Care Manager Environmental Affairs Name Role Phone Tiffany Heath MD Primary Care Provider [phone] Encounter Details Date Type Department Care Team (Late st Contact Info) Description 01/14/2017 Conversion Encounter [facility] [place] [address] [place] [address] Social History Tobacco Use Types Packs/Day Years [...] on filedocumented in this encounter Care Teams Manager Environmental Affairs Relationship Specialty Start Date End Date Tiffany Heath MD [address] [place] [address] PCP - General Pediatrics 06/25/23 03/28/24 documented as of this encounter
[2024-08-01 13:37] LABS: HPV Genotype 16 Negative (Negative); HPV Genotype 18 Negative (Negative); HPV High Risk Positive (Negative)
== END 2024-07-27 09:02 | disposition home or self-care (01) ==
LOC: HO.LNP 09:01
PROVIDERS: PCP Pediatrics; Visit Provider Advanced Practice Midwife
DX: O21.9 Vomiting of pregnancy, unspecified (principal); Z3A.12 12 weeks gestation of pregnancy; Z11.51 Encounter for screening for human papillomavirus (HPV)
CPT/HCPCS: 81003; 87626; 88175; 99212; 99459

== ENCOUNTER 2024-07-27 09:01 | Outpatient (AMB) | payer OTHER, SELFPAY ==
--- NOTE | 2024-07-27 09:03 | MHC.OFFVISPN ---
Intake Vital Signs 07/27/24 09:04 Height 5 ft 2 in Weight 134 lb BMI 24.5 BP 112/70 Intake Visit Reasons: OB/PE Intake Note: EPDS 4 Straight Tooth Gear Generator Operator: Straight Tooth Gear Generator Operator Present (Yelena) Allergies coconut Allergy (Verified 07/27/24 09:04) Anaphylaxis Is last menstrual period known: Yes Patient : Yes PFS Medical History (Updated 07/27/24 @ 10:55 by Mami Snow CNM) Nausea and vomiting in Encounter for supervision of normal first , unspecified trimester Family History Mother History of breast cancer Sister Thyroid carcinoma Maternal Grandfather No problems noted. Paternal Grandfather CAD (coronary artery disease) Social History Alcohol intake: never Patient Tobacco Use Status: Never used Tobacco Agree to transfusion: Yes Sexual orientation: Straight/Heterosexual Gender identity: Female Cognitive needs: No Hearing needs: No Vision needs: No Female Reproductive History Menstrual Age of Menarche: 11 History History 1 Elective abortions Para 0 Spontaneous abortions Hx # Term Pregnancies Ectopic pregnancies Hx # Pregnancies Multiple births Questionnaire [place] Depression [place] Depression Scale I have been able to laugh and see the funny side of things: As much as I always could I have looked forward with enjoyment to things: As much as I ever did I have blamed myself unnecessarily when things went wrong: Not very often I have been anxious or worried for no reason: Yes, sometimes I have felt scared of panicky for no very good reason at all: No, not so much Things have been getting on top of me: No, I have been coping as well as ever I have been so unhappy that I have had difficulty sleeping: No, not at all I have felt sad or miserable: No, not at all I have been so unhappy that I have been crying: No, never The thought of harming myself has occurred to me: Never 4 Visit RADHA Calculator Estimated Delivery Date Method Current WG Current Estimate 02/07/25 LMP (Certain) 12w 1d Other Estimates 02/07/25 Ultrasound #1 12w 1d Expected Delivery Route/Plan Specific Issues/Plans Pt is planning to breast feed Yr. old G1 P 0 EDC: 02/06/25 by US Blood type: Apos Problem List: 1. naursea/vomiting. Testing: Panorama/and or First Tri screen: NT scan: nl-1.1 AFP: FAS: Glucose: early 0 28 wk glucose: CBC 1st Tri: 12.6/37.5 28 wk. 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 12.1wk. IOB. Taking PNV, Doing well, stays well hydrated, admits to daily nausea and vomiting. Has tried Sea bands, dietary changes, continues to take B6 vitamins. Denies any LOF, VB, abd. pain or urinary symptoms. EPDS-4. Apos. Neri in to hear FHR. Reviewed: PTL s/s-LOF/Ctx's/VB, when to seek emergent care. discomforts, self help measures. Encouraged a healthy well balanced diet, regular walking/exercise in . Hydrate well, 10-12 glasses of water daily. Pap, cultures today. Rx for Zofran. Plan panoramic labs today. RTO 4wks. Visit Date: 07/21/24 Last Updated by: Mine Ding Darcy is here with her step Mom, Yanelis for disability manager. LMP 05/03/24 RADHA by dates 02/07/25 and GA today 11w2d. US on 06/22/24 at 7w1d agrees with RADHA 02/07/25. This is Darcy's first and she is feeling well except for nausea/vomiting daily. She is taking Vitamin B6 tid and PNVs daily, before bed. She does not feel the Vit B6 is helping as she continues to have nausea and vomiting. She has gained weight (prepregnancy 125 lbs and she has been maintaining her weight at 136-137 lbs, BMI is 24.9). She is able to take apples, apple juice, water, Preggy pops . Darcy is aware to go to ED if she cannot keep anything down for 12 hrs or more. We did discuss use of Unisom in addition to B6. FOB is Scot and Darcy notes they are very excited and Scot is very supportive. She was given the folder, we discussed first trimester education, danger signs, how to reach operations processor provider after hours. labs ordered and pt will schedule OB PE. All of Darcy's and her Mom's questions were answered to the best of my ability. Darcy will call back with any questions or concerns. Review of Systems Const All systems reviewed & are unremarkable except as noted in HPI and below Reports as per HPI Eyes Reports no additional complaints ENT Reports no additional complaints Card Reports no additional complaints Resp Reports no additional complaints GI Reports as per HPI and Reports no additional complaints Reports as per HPI Musc Reports no additional complaints Skin/Breast Reports as per HPI Neuro Reports no additional complaints Psych Reports no additional complaints Endo Reports no additional complaints Claude/Lymph Reports no additional complaints Aller/Immun Reports no additional complaints Results AMB Urinalysis, Automated UA Leukoctes 0 Azalia/uL Last Edit by TITUS Christianson on 07/27/24 09:24 UA Nitrite Negative Last Edit by TITUS Christianson on 07/27/24 09:24 UA Urobilinogen 0 mg/dL Last Edit by Nisa García Reyna on 07/27/24 09:24 UA Protein 0.5 mg/dL Last Edit by Nisa García Reyna on 07/27/24 09:24 UA pH 6.5 Last Edit by Nisa García Reyna on 07/27/24 09:24 UA Blood 0 Varun/uL Last Edit by Nisa García Reyna on 07/27/24 09:24 UA Specific [place] 1.015 Last Edit by TITUS Christianson on 07/27/24 09:24 UA Ketone Negative Last Edit by Nisa García Reyna on 07/27/24 09:24 UA Bilirubin 0 mg/dL Last Edit by TITUS Christianson on 07/27/24 09:24 UA Glucose 0 mg/dL Last Edit by Nisa García Reyna on 07/27/24 09:24 Exam Const Constitutional General: cooperative, healthy appearing, no acute distress, well developed and alert Orientation/consciousness: patient oriented x3 HENMT Head: normal to inspection Eyes General: appearance normal, both eyes and all related structures Neck Neck: normal visual inspection Thyroid: Thyroid normal Chest Chest palpation & inspection: normal inspection of the chest and other (no puckering, dimpling, peau de orange, retraction, discharge, masses) Breast/axilla inspection: normal inspection of the breasts Breast/axilla palpation: normal palpation of the breasts Resp Effort & Inspection: normal respiratory effort Auscultation: clear to auscultation bilaterally Cardio Rate: regular rate Rhythm: regular rhythm Heart sounds: S1 normal heart sound present GI Inspection (GI): normal to inspection Palpation (GI): Soft to palpation General Exam: Yes bladder normal to palpation External Female Exam: normal external appearance and normal appearance of the urethra Urethra: normal appearance of the urethra Speculum exam - vagina: normal appearance of the vagina and normal discharge Speculum Exam - Cervix: normal appearance of the cervix and Other cervical findings present (Bled with Pap) Bimanual exam- vagina & uterus: normal bimanual exam, normal palpation, bladder normal to palpation, normal palpation, non-tender and enlarged (12 week size) Bimanual Exam- Adnexa, other: no masses Skin General skin exam: no rashes or lesions noted Rashes: no rashes Neuro Cognition (Neuro): normal cognition Extrem General: normal to inspection Psych Attitude: cooperative Thought process: Normal thought process present Results Reviewed Results Reviewed: Laboratory Last Values Urine pH (Auto) 6.5 07/27/24 09:16 Specific [place] (Auto) 1.015 07/27/24 09:16 Urine Protein (Auto) 0.5 mg/dL 07/27/24 09:16 Glucose (UA)(Auto) 0 mg/dL 07/27/24 09:16 Urine Ketones (Auto) Negative 07/27/24 09:16 Urine Blood (Auto) 0 Varun/uL 07/27/24 09:16 Urine Nitrite (Auto) Negative 07/27/24 09:16 Urine Bilirubin (Auto) 0 mg/dL 07/27/24 09:16 Urine Urobilinogen (Auto) 0 mg/dL 07/27/24 09:16 Leukocyte Esterase (Auto) 0 Azalia/uL 07/27/24 09:16 Coding Level of Care Code [place] Diagnoses Encounter for supervision of normal first , unspecified trimester Z34. Nausea and vomiting in O21.9 Assessment & Plan Assessment & Plan (1) Encounter for supervision of normal first , unspecified trimester: Code(s): Z34.00 - Encounter for supervision of normal first , unspecified trimester Category: Medical (2) Nausea and vomiting in : Code(s): O21.9 - Vomiting of , unspecified Category: Medical Orders: Orders AMB Urinalysis Automated Today Z34.00 - Encounter for supervision of normal first , unspecified trimester CT NG by PCR Today Z34.00 - Encounter for supervision of normal first , unspecified trimester Pap Smear Today Z34.00 - Encounter for supervision of normal first , unspecified trimester Bacterial Vaginosis Panel Today Z34.00 - Encounter for supervision of normal first , unspecified trimester Medications: New ondansetron 4 mg PO QID PRN 20 tabs 1RF nausea and vomiting
[2024-07-27 09:04] VITALS: BP 112/70; BMI 24.5
--- OUTSIDE RECORDS SUMMARY | 2024-07-27 09:43 | XMS_ITS | Encounter Summary ---
Author Organization [facility] Address [address] [place] [address] Phone Care Team Providers Care Computer Technology Trainer Name Role Phone Tiffany Heath MD Primary Care Provider Reason for Visit * Reason Onset Date Comments Med Refill 09/17/2020 Encounter Details Date Type Department Care Team (Late st Contact Info) Description 09/17/2020 Refill [facility] [place] [address] [place] [address] Miriam Elise MD [address] [place] [address] Encounter for initial prescription of contraceptive pills [...] pills documented in this encounter Care Teams Computer Technology Trainer Relationship Specialty Start Date End Date Tiffany Heath MD [address] [place] [address] PCP - General Pediatrics 06/25/23 03/28/24 documented as of this encounter
--- OUTSIDE RECORDS SUMMARY | 2024-07-27 09:43 | XMS_ITS | Encounter Summary ---
Author Organization [facility] Address [address] [place] [address] Phone Care Team Providers Care Ramp Lead Name Role Phone Tiffany Heath MD Primary Care Provider [phone] Encounter Details Date Type Department Care Team (Late st Contact Info) Description 08/06/2016 Documentation [facility] [place] Family Medicine [address] [place] [address] Family Medicine, Physician [address], [place] [address]151 Social History Tobacco Use Types Packs/Day Years [...] on filedocumented in this encounter Care Teams Ramp Lead Relationship Specialty Start Date End Date Tiffany Heath MD [address] [place] [address] PCP - General Pediatrics 06/25/23 03/28/24 documented as of this encounter
--- OUTSIDE RECORDS SUMMARY | 2024-07-27 09:43 | XMS_ITS | Encounter Summary ---
Author Organization [facility] Address [address] [place] [address] Phone Care Team Providers Care Party Plan Sales Host/Hostess Name Role Phone Tiffany Heath MD Primary Care Provider [phone] Reason for Visit * Reason Onset Date Comments Med Refill 04/24/2020 Encounter Details Date Type Department Care Team (Late st Contact Info) Description 04/24/2020 Refill [facility] [place] [address] [place] [address] Miriam Elise MD [address] [place] [address] Encounter for initial prescription of injectable contraceptive [...] contraceptive documented in this encounter Care Teams Party Plan Sales Host/Hostess Relationship Specialty Start Date End Date Tiffany Heath MD [address] [place] [address] PCP - General Pediatrics 06/25/23 03/28/24 documented as of this encounter
--- OUTSIDE RECORDS SUMMARY | 2024-07-27 09:43 | XMS_ITS | Encounter Summary ---
Author Organization [facility] Address [address] [place] [address] Phone Care Team Providers Care Deckhand Clam Dredge Name Role Phone Tiffany Heath MD Primary Care Provider [phone] Encounter Details Date Type Department Care Team (Late st Contact Info) Description 06/29/2011 Documentation [facility] [place] Family Medicine [address] [place] [address] Family Medicine, Physician [address] [place], [place] 8545[address] Social History Tobacco Use Types Packs/Day Years [...] on filedocumented in this encounter Care Teams Deckhand Clam Dredge Relationship Specialty Start Date End Date Tiffany Heath MD [address] [place] [address] PCP - General Pediatrics 06/25/23 03/28/24 documented as of this encounter
--- OUTSIDE RECORDS SUMMARY | 2024-07-27 09:43 | XMS_ITS | Encounter Summary ---
Author Organization [facility] Address [address] [place] [address] Phone Care Team Providers Care Skirt Maker Name Role Phone Tiffany Heath MD Primary Care Provider [phone] Encounter Details Date Type Department Care Team (Late st Contact Info) Description 05/08/2011 Documentation [facility] [place] [address] [place] [address] Family Medicine, Physician [address] [place], [place] [address]171 Social History Tobacco Use Types Packs/Day Years [...] on filedocumented in this encounter Care Teams Skirt Maker Relationship Specialty Start Date End Date Tiffany Heath MD [address] [place] [address] PCP - General Pediatrics 06/25/23 03/28/24 documented as of this encounter
--- OUTSIDE RECORDS SUMMARY | 2024-07-27 09:43 | XMS_ITS | Clinical Summary ---
Author Organization [facility] Address [address] [place] [address] Phone Care Team Providers Care Mosaic Technician Name Role Phone Unavailable Primary Care Provider [...] and depression., started seeing therapist Fer at [facility], for one year, then stopped. [...] Completed 08/10/2019, 015 Procedures * Due to [place] state law, this organization might not be sharing sensitive test results. Procedure Name Priority Date/Time Associated Diagnosis Comments CHLAMYDIA AND GONORRHEA, AMPLIFIED Routine 10/28/2023 1:50 PM EDT Screening for chlamydial disease from Last 3 Months or Most Recently Relevant to Health Maintenance Results * Due to [place] state law, this organization might not be sharing sensitive test results. * Chlamydia and Gonorrhoea, Amplified (10/28/2023 1:50 PM EDT) C trach NOELLE Negative Negative [facility] N gonorrhoeae NOELLE Negative Negative [facility] Urine (Urine) 10/28/2023 1:5 0 PM EDT 10/28/2023 Comment:UR Narrative [facility] - 11/03/2023 2:08 PM EDT Performed at: ??01 - [facility] [place] [address], [address], [place], [place] ??[id number] Substance Abuse Prevention Coordinator: Ez Ramos MD, Phone: ??[phone] us Tiffany Heath MD LAB MICROBIOLOGY - GENERAL ORDER RONNY Final Result [facility] [address] [place] [address] from Last 3 Months or Most Recently Relevant to Health Maintenance Insurance [facility] NON PCC [facility] ACO [facility] NON PCC
--- OUTSIDE RECORDS SUMMARY | 2024-07-27 09:43 | XMS_ITS | Encounter Summary ---
Author Organization [facility] Address [address] [place] [address] Phone Care Team Providers Care Stockroom Attendant Name Role Phone Tiffany Heath MD Primary Care Provider [phone] Encounter Details Date Type Department Care Team (Late st Contact Info) Description 01/14/2017 Conversion Encounter [facility] [place] [address] [place] [address] Social History Tobacco Use Types Packs/Day Years [...] on filedocumented in this encounter Care Teams Stockroom Attendant Relationship Specialty Start Date End Date Tiffany Heath MD [address] [place] [address] PCP - General Pediatrics 06/25/23 03/28/24 documented as of this encounter
== END 2024-07-27 10:10 | disposition home or self-care (01) ==
LOC: HO.HWS 09:01
PROVIDERS: PCP Pediatrics; Visit Provider Advanced Practice Midwife
DX: Z34.00 Encounter for supervision of normal first pregnancy, unspecified trimester (principal)
CPT/HCPCS: 25942; S3005

== ENCOUNTER 2024-07-27 09:49 | Outpatient (REF) | payer OTHER, SELFPAY ==
[2024-07-28 12:30] LABS: Bacterial Vaginosis PCR NEGATIVE (Negative); Candida Group PCR NOT DETECTED (Not Detect); Candida glab krusei PCR NOT DETECTED (Not Detect); Trichomonas vaginalis PCR NOT DETECTED (Not Detect)
[2024-07-28 13:00] LABS: CT PCR NOT DETECTED (Not Detect.); NG PCR NOT DETECTED (Not Detect.)
== END 2024-07-27 09:50 | disposition home or self-care (01) ==
LOC: HO.LAB 09:49
PROVIDERS: Visit Provider Advanced Practice Midwife
DX: Z34.00 Encounter for supervision of normal first pregnancy, unspecified trimester (principal)
CPT/HCPCS: 81515; 87491; 87591

== ENCOUNTER 2024-08-24 14:14 | Outpatient (AMB) | payer OTHER, SELFPAY ==
--- NOTE | 2024-08-24 14:21 | A.OFFVISPN_ITS ---
Intake Vital Signs 08/24/24 14:29 Height 5 ft 2 in Weight 137 lb BMI 25.1 BP 100/60 Intake Visit Reasons: GALINA Accompanied by: Significant Other Allergies coconut Allergy (Verified 08/24/24 14:29) Anaphylaxis Patient : Yes PFSH Medical History (Updated 08/24/24 @ 14:29 by Mami Snow CNM) LGSIL on Pap smear of cervix Nausea and vomiting in Family History Mother History of breast cancer Sister Thyroid carcinoma Maternal Grandfather No problems noted. Paternal Grandfather CAD (coronary artery disease) Social History Both parents involved: Yes Caregiver staying overnight: No Alcohol intake: never Patient Tobacco Use Status: Never used Tobacco Agree to transfusion: Yes Sexual orientation: Straight/Heterosexual Gender identity: Female Cognitive needs: No Hearing needs: No Vision needs: No Female Reproductive History Menstrual Age of Menarche: 11 History History 1 Elective abortions Para 0 Spontaneous abortions Hx # Term Pregnancies Ectopic pregnancies Hx # Pregnancies Multiple births Visit RADHA Calculator Estimated Delivery Date Method Current WG Current Estimate 02/07/25 LMP (Certain) 16w 1d Other Estimates 02/07/25 Ultrasound #1 16w 1d Expected Delivery Route/Plan Specific Issues/Plans Pt is planning to breast feed 19Yr. old G1 P 0 EDC: 02/06/25 by Blood type: Apos Problem List: 1. naursea/vomiting. Testing: Panorama/and or First Tri screen: NT scan: nl-1.1 AFP: FAS: Glucose: early 0 28 wk glucose: CBC 1st Tri: 12.6/37.5 28 wk. CBC: GBS: Vaccinations: Flu: obtained Covid: none Tdap: RSV: [id number]: Education/Services WIC: enrolled CBE: informed regarding [employer] classes, library books and you tube or other professional medical web sites and videos. 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 Labor, and Concerns: Labor support: Neri Plan: Infant Feeding Plans: breast control: OB Visit Log Initial Weight: 125 lb Date -?-?-?-?-?-?-?-?-?-?-?-?- EGA Weight Gest Week Fundal Ht Present FHR move Efface % Edema BP PrePreg We Weight GTT -?-?-?-?-?-?-?-?-?-?-?-?- Glucose LV Protein Blood Type 07/21/24 -?-?-?-?-?-?-?-?-?-?-?-?- 11w 2d 136 lb 4 oz (+11 lb 4 oz) 136 lb 4 oz -?-?-?-?-?-?-?-?-?-?-?-?- 07/27/24 -?-?-?-?-?-?-?-?-?-?-?-?- 12w 1d 134 lb (+9 lb) 12 150 112/70 134 lb -?-?-?-?-?-?-?-?-?-?-?-?- 08/24/24 -?-?-?-?-?-?-?-?-?-?--?-?- 16w 1d 137 lb (+12 lb) 16 150 100/60 137 lb -?-?-?-?-?-?-?-?-?-?-?-?- Notes Visit Date: 08/24/24 Last Updated by: Mami Snow CNM Note author: Mami Snow CNM. 16.1wk. GALINA. Taking PNV, and B6 vitamins. Doing well with no concerns. Good appetite, improved with use of Zofran, stays well hydrated. Denies any LOF, VB, abd. pain or urinary symptoms. Reviewed: PTL s/s-LOF/Ctx's/VB, when to seek emergent care. discomforts, self help measures. FKC and when to call the office for further eval. Encouraged a healthy well balanced diet, regular walking/exercise in . Hydrate well, 10-12 glasses of water daily. FAS ordered for mid August. RTO 4wks. Visit Date: 07/27/24 Last Updated by: Mami Snow CNM Note author: Mami Snow CNM. 12.1wk. IOB. Taking PNV, Doing well, stays well hydrated, admits to daily nausea and vomiting. Has tried Sea bands, dietary changes, continues to take B6 vitamins. Denies any LOF, VB, abd. pain or urinary symptoms. EPDS-4. Apos. Neri in to hear FHR. Reviewed: PTL s/s-LOF/Ctx's/VB, when to seek emergent care. discomforts, self help measures. Encouraged a healthy well balanced diet, regular walking/exercise in p regnancy. Hydrate well, 10-12 glasses of water daily. Pap, cultures today. Rx for Zofran. Plan panoramic labs today. RTO 4wks. Visit Date: 07/21/24 Last Updated by: Mine Ding Darcy is here with her step Mom, Yanelis for nanotechnology engineering technologist. LMP 05/03/24 RADHA by dates 02/07/25 and GA today 11w2d. US on 06/22/24 at 7w1d agrees with RADHA 02/07/25. This is Darcy's first and she is feeling well except for nausea/vomiting daily. She is taking Vitamin B6 tid and PNVs daily, before bed. She does not feel the Vit B6 is helping as she continues to have nausea and vomiting. She has gained weight (prepregnancy 125 lbs and she has been maintaining her weight at 136-137 lbs, BMI is 24.9). She is able to take apples, apple juice, water, Preggy pops . Darcy is aware to go to ED if she cannot keep anything down for 12 hrs or more. We did discuss use of Unisom in addition to B6. FOB is Scot and Darcy notes they are very excited and Scot is very supportive. She was given the folder, we discussed first trimester education, danger signs, how to reach research nutritionist provider after hours. labs ordered and pt will schedule OB PE. All of Carl[place] and her Mom's questions were answered to the best of my ability. Darcy will call back with any questions or concerns. Results AMB Urinalysis, Automated UA Leukoctes 0 Azalia/uL Last Edit by TITUS Christianson on 08/24/24 14:51 UA Nitrite Negative Last Edit by Nisa García [facility] on 08/24/24 14:51 UA Urobilinogen 0 mg/dL Last Edit by Nisa García [facility] on 08/24/24 14:5 1 UA Protein 0 mg/dL Last Edit by Nisa García [facility] on 08/24/24 14:51 UA pH 6.0 Last Edit by Nisa García [facility] on 08/24/24 14:51 UA Blood 0 Varun/uL Last Edit by Nisa García [facility] on 08/24/24 14:51 UA Specific [place] 1.015 Last Edit by Nisa García [facility] on 08/24/24 14:51 UA Ketone Negative Last Edit by Nisa García [facility] on 08/24/24 14:51 UA Bilirubin 0 mg/dL Last Edit by Nisa García [facility] on 08/24/24 14:51 UA Glucose 0 mg/dL Last Edit by Nisa García [facility] on 08/24/24 14:51 Coding Level of Care Code [place] Diagnoses Encounter for supervision of other normal , second trimester Z34.82 Assessment & Plan Assessment & Plan (1) Encounter for supervision of other normal , second trimester: Code(s): Z34.82 - Encounter for supervision of other normal , second trimester Category: Medical Orders: Orders US OB /maternal detail 09/11/24 Z34.82 - Encounter for supervision of other normal , second trimester
[2024-08-24 14:29] VITALS: BP 100/60; BMI 25.1
--- OUTSIDE RECORDS SUMMARY | 2024-08-24 17:54 | XMS_ITS | Clinical Summary ---
Author Organization [facility] Address [address] [place] [address] Phone Care Team Providers Care House Mover Helper Name Role Phone Unavailable Primary Care Provider [...] and depression., started seeing therapist Fer at [facility], for one year, then stopped. 01/12/24: [...] PM EDT Performed at: ??01 - [facility] [place] [address], [address], [place], [place] ??[id number] Full Stack Java Developer: Ez Ramos MD, Phone: ??[phone] us Tiffany Heath MD LAB MICROBIOLOGY - GENERAL ORDER RONNY Final Result [facility] [address] [place] [address] from Last 3 Months or Most Recently Relevant to Health Maintenance Insurance [facility] NON PCC [facility] ACO [facility] NON PCC
--- OUTSIDE RECORDS SUMMARY | 2024-08-24 17:54 | XMS_ITS | Encounter Summary ---
Author Organization [facility] Address [address] [place] [address] Phone Care Team Providers Care Social Studies Teacher Name Role Phone Tiffany Heath MD Primary Care Provider [phone] Encounter Details Date Type Department Care Team (Late st Contact Info) Description 08/06/2016 Documentation [facility] [place] Family Medicine [address] [place] [address] Family Medicine, Physician [address] [place], [place] [address] Social History Tobacco Use Types Packs/Day Years [...] filedocumented in this encounter Care Teams Social Studies Teacher Relationship Specialty Start Date End Date Tiffany Heath MD [address] [place] [address] PCP - General Pediatrics 06/25/23 03/28/24 documented as of this encounter
--- OUTSIDE RECORDS SUMMARY | 2024-08-24 17:54 | XMS_ITS | Encounter Summary ---
Author Organization [facility] Address [address] [place] [address] Phone Care Team Providers Care Solutions Consultant Name Role Phone Tiffany Heath MD Primary Care Provider [phone] Reason for Visit * Reason Onset Date Comments Med Refill 09/17/2020 Encounter Details Date Type Department Care Team (Late st Contact Info) Description 09/17/2020 Refill [facility] [place] [address] [place] [address] Miriam Elise MD [address] [place] [address] Encounter for initial prescription of contraceptive pills [...] pills documented in this encounter Care Teams Solutions Consultant Relationship Specialty Start Date End Date Tiffany Heath MD [address] [place] [address] PCP - General Pediatrics 06/25/23 03/28/24 documented as of this encounter
--- OUTSIDE RECORDS SUMMARY | 2024-08-24 17:54 | XMS_ITS | Encounter Summary ---
Author Organization [facility] Address [address] [place] [address] Phone Care Team Providers Care Wet Cotton Feeder Name Role Phone Tiffany Heath MD Primary Care Provider [phone] Reason for Visit * Reason Onset Date Comments Med Refill 04/24/2020 Encounter Details Date Type Department Care Team (Late st Contact Info) Description 04/24/2020 Refill [facility] [place] [address] [place] [address] Miriam Elise MD [address] [place] [address] Encounter for initial prescription of injectable contraceptive [...] contraceptive documented in this encounter Care Teams Wet Cotton Feeder Relationship Specialty Start Date End Date Tiffany Heath MD [address] [place] [address] PCP - General Pediatrics 06/25/23 03/28/24 documented as of this encounter
--- OUTSIDE RECORDS SUMMARY | 2024-08-24 17:54 | XMS_ITS | Encounter Summary ---
Author Organization [facility] Address [address] [place] [address] Phone Care Team Providers Care Property Officer Name Role Phone Tiffany Heath MD Primary Care Provider [phone] Encounter Details Date Type Department Care Team (Late st Contact Info) Description 05/08/[address] [facility] [place] Family Medicine [address] [place] [address] Family Medicine, Physician [address] [place], [place] [address] Social History Tobacco Use Types Packs/Day Years [...] on filedocumented in this encounter Care Teams Property Officer Relationship Specialty Start Date End Date Tiffany Heath MD [address] [place] [address] PCP - General Pediatrics 06/25/23 03/28/24 documented as of this encounter
--- OUTSIDE RECORDS SUMMARY | 2024-08-24 17:54 | XMS_ITS | Encounter Summary ---
Author Organization [facility] Address [address] [place] [address] Phone Care Team Providers Care Tombstone Polisher Name Role Phone Tiffany Heath MD Primary Care Provider [phone] Encounter Details Date Type Department Care Team (Late st Contact Info) Description 06/29/2011 Documentation [facility] [place] [address] [place] [address] Family Medicine, Physician [address] [place], [place] 719[address] Social History Tobacco Use Types Packs/Day Years [...] on filedocumented in this encounter Care Teams Tombstone Polisher Relationship Specialty Start Date End Date Tiffany Heath MD [address] [place] [address] PCP - General Pediatrics 06/25/23 03/28/24 documented as of this encounter
--- OUTSIDE RECORDS SUMMARY | 2024-08-24 17:54 | XMS_ITS | Continuity of Care Document ---
Author Organization [facility] Address [address] [place] [address]- Care Team Providers Care Knot Borer Name Role Phone Miriam Elise MD Primary Care Physician [phone] [place] [facility] [place] 07/10/24 - 08/09/[address] [address]- Encounter Type: Triage Allergies, Adverse Reactions, Alerts No Known Allergies Patient Care team information Care Team Personnel Name: Miriam Elise MD Position: [facility] Physician - Pediatrics Member Role: PCP Address: [address] [place] [address] [facility] [place] [address] [place] Telecom: Care Team Related Persons Name: IVANA KANWAL Insurance Providers Guarantor name: [employer] Plan Information #: 1 Payer: [employer] Member Number: NA Policy Number: NA Group Number: [id number]
--- OUTSIDE RECORDS SUMMARY | 2024-08-24 17:54 | XMS_ITS | Encounter Summary ---
Author Organization [facility] Address [address] [place] [address] Phone Care Team Providers Care Associate Professor Of Literature Name Role Phone Tiffany Heath MD Primary Care Provider [phone] Encounter Details Date Type Department Care Team (Late st Contact Info) Description 01/14/2017 Conversion Encounter [facility] [place] [address] [place] [address] Social History Tobacco Use Types Packs/Day Years [...] on filedocumented in this encounter Care Teams Associate Professor Of Literature Relationship Specialty Start Date End Date Tiffany Heath MD [address] [place] [address] PCP - General Pediatrics 06/25/23 03/28/24 documented as of this encounter
== END 2024-08-24 14:48 | disposition home or self-care (01) ==
LOC: HO.HWS 14:14
PROVIDERS: PCP Pediatrics; Visit Provider Advanced Practice Midwife
DX: Z34.82 Encounter for supervision of other normal pregnancy, second trimester (principal)
CPT/HCPCS: 25942

== ENCOUNTER → 2024-08-24 14:14 | Outpatient (BNVA) | payer OTHER, SELFPAY | PROVIDERS: PCP Pediatrics; Visit Provider Advanced Practice Midwife | DX: O21.9 Vomiting of pregnancy, unspecified (principal); Z3A.16 16 weeks gestation of pregnancy | CPT/HCPCS: 81003; 99212 ==

== ENCOUNTER 2024-09-27 10:27 | Outpatient (AMB) | payer OTHER, SELFPAY ==
[2024-09-27 10:28] VITALS: BP 110/64; BMI 25.4
--- NOTE | 2024-09-27 10:28 | MHC.OFFVISPN ---
Intake Vital Signs 09/27/24 10:28 Height 5 ft 2 in Weight 139 lb BMI 25.4 BP 110/64 Intake Visit Reasons: GALINA Allergies coconut Allergy (Verified 09/27/24 10:28) Anaphylaxis Patient : Yes PFSH Medical History (Updated 09/27/24 @ 11:44 by Mami Snow CNM) Sciatica LGSIL on Pap smear of cervix Nausea and vomiting in Family History Mother History of breast cancer Sister Thyroid carcinoma Maternal Grandfather No problems noted. Paternal Grandfather CAD (coronary artery disease) Social History Both parents involved: Yes Caregiver staying overnight: No Alcohol intake: never Patient Tobacco Use Status: Never used Tobacco Agree to transfusion: Yes Sexual orientation: Straight/Heterosexual Gender identity: Female Cognitive needs: No Hearing needs: No Vision needs: No Female Reproductive History Menstrual Age of Menarche: 11 History History 1 Elective abortions Para 0 Spontaneous abortions Hx # Term Pregnancies Ectopic pregnancies Hx # Pregnancies Multiple births Visit RADHA Calculator Estimated Delivery Date Method Current WG Current Estimate 02/07/25 LMP (Certain) 21w 0d Other Estimates 02/07/25 Ultrasound #1 21w 0d Expected Delivery Route/Plan Specific Issues/Plans Pt is planning to breast feed 19Yr. old G1 P 0 EDC: 02/06/25 by Blood type: Apos Problem List: 1. naursea/vomiting. 2. LGSIL/HPV+, repeat pap 2025... Testing: Panorama/and or First Tri screen: Panorama-low risk, Horizon-neg. CF-negative NT scan: nl-1.1 AFP: FAS: Glucose: early 0 28 wk glucose: CBC 1st Tri: 12.6/37.5 28 wk. CBC: GBS: Vaccinations: Flu: obtained Covid: none Tdap: RSV: [id number]-May: Education/Services WIC: enrolled CBE: informed regarding [place] classes, library books and you [email or web address] or other professional medical web sites and videos. 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 Labor, and Concerns: Labor support: Neri Plan: Feeding Plans: breast control: OB Visit Log Initial Weight: 125 lb Date <del>?</del> EGA Weight Gest Week Fundal Ht Present FHR move Efface % Edema BP PrePreg We Weight GTT <del>?</del> Glucose LV Protein Blood Type 07/21/24 <del>?</del> 11w 2d 136 lb 4 oz (+11 lb 4 oz) 136 lb 4 oz <del>?</del> 07/27/24 <del>?</del> 12w 1d 134 lb (+9 lb) 12 150 112/70 134 lb <del>?</del> 08/24/24 <del>?</del> 16w 1d 137 lb (+12 lb) 16 150 100/60 137 lb <del>?</del> 09/27/24 <del>?</del> 21w 0d 139 lb (+14 lb) 22 150 110/64 139 lb <del>?</del> Notes Visit Date: 09/27/24 Last Updated by: Mami Snow CNM Note author: Mami Snow CNM. 21wk. GALINA. Accompanied by her sister. Taking PNV, and B vitamins due to ongoing nausea. Doing well with no concerns. Good appetite, stays well hydrated. Denies any LOF, VB, abd. pain or urinary symptoms. Reports her baby is very active. Concerns w/recent sciatic pain. Reviewed: FAS planned. PTL s/s-LOF/Ctx's/VB, when to seek emergent care. discomforts, self help measures. Encouraged a healthy well balanced diet, regular walking/exercise in . Hydrate well, 10-12 glasses of water daily. PT referral for sciatic pain. Reviewed plan for delivery at [facility], offered to transfer care to meet the midwives at [facility] for continued care. Patient prefers to remain at [facility] for her care and deliver at [facility] returning to the office here for care. RTO for 4 wks. Visit Date: 08/24/24 Last Updated by: Mami Snow CNM Note author: Mami Snow CNM. 16.1wk. GALINA. Taking PNV, and B6 vitamins. Doing well with no concerns. Good appetite, improved with use of Zofran, stays well hydrated. Denies any LOF, VB, abd. pain or urinary symptoms. Reviewed: PTL s/s-LOF/Ctx's/VB, when to seek emergent care. discomforts, self help measures. FKC and when to call the office for further eval. Encouraged a healthy well balanced diet, regular walking/exercise in . Hydrate well, 10-12 glasses of water daily. FAS ordered for mid August. RTO 4wks. Visit Date: 07/27/24 Last Updated by: Mami Snow CNM Note author: Mami Snow CNM. 12.1wk. IOB. Taking PNV, Doing well, stays well hydrated, admits to daily nausea and vomiting. Has tried Sea bands, dietary changes, continues to take B6 vitamins. Denies any LOF, VB, abd. pain or urinary symptoms. EPDS-4. Apos. Neri in to hear FHR. Reviewed: PTL s/s-LOF/Ctx's/VB, when to seek emergent care. discomforts, self help measures. Encouraged a healthy well balanced diet, regular walking/exercise in . Hydrate well, 10-12 glasses of water daily. Pap, cultures today. Rx for Zofran. Plan panoramic labs today. RTO 4wks. 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 LMP 05/03/24 RADHA by dates 02/07/25 and GA today 11w2d. US on 06/22/24 at 7w1d agrees with RADHA 02/07/25. This is Darcy's first and she is feeling well except for nausea/vomiting daily. She is taking Vitamin B6 tid and PNVs daily, before bed. She does not feel the Vit B6 is helping as she continues to have nausea and vomiting. She has gained weight (prepregnancy 125 lbs and she has been maintaining her weight at 136-137 lbs, BMI is 24.9). She is able to take apples, apple juice, water, Preggy pops . Darcy is aware to go to ED if she cannot keep anything down for 12 hrs or more. We did discuss use of Unisom in addition to B6. FOB is Scot and Darcy notes they are very excited and Scot is very supportive. She was given the folder, we discussed first trimester education, danger signs, how to reach solution designer provider after hours. labs ordered and pt will schedule OB PE. All of Darcy's and her Mom's questions were answered to the best of my ability. Darcy will call back with any questions or concerns. Results AMB Urinalysis, Automated UA Leukoctes 0.5 Azalia/uL Last Edit by TITUS Christianson on 09/27/24 10:35 UA Nitrite Negative Last Edit by TITUS Christianson on 09/27/24 10:35 UA Urobilinogen 0 mg/dL Last Edit by TITUS Christianson on 09/27/24 10:35 UA Protein 0.5 mg/dL Last Edit by TITUS Christianson on 09/27/24 10:35 UA pH 8.0 Last Edit by TITUS Christianson on 09/27/24 10:35 UA Blood 0 Varun/uL Last Edit by TITUS Christianson on 09/27/24 10:35 UA Specific [place] 1.010 Last Edit by TITUS Christianson on 09/27/24 10:35 UA Ketone Negative Last Edit by TITUS Christianson on 09/27/24 10:35 UA Bilirubin 0 mg/dL Last Edit by TITUS Christianson on 09/27/24 10:35 UA Glucose 0 mg/dL Last Edit by TITUS Christianson on 09/27/24 10:35 Results Reviewed Results Reviewed: Laboratory Last Values Urine pH (Auto) 8.0 09/27/24 10:34 Specific [place] (Auto) 1.010 09/27/24 10:34 Urine Protein (Auto) 0.5 mg/dL 09/27/24 10:34 Glucose (UA)(Auto) 0 mg/dL 09/27/24 10:34 Urine Ketones (Auto) Negative 09/27/24 10:34 Urine Blood (Auto) 0 Varun/uL 09/27/24 10:34 Urine Nitrite (Auto) Negative 09/27/24 10:34 Urine Bilirubin (Auto) 0 mg/dL 09/27/24 10:34 Urine Urobilinogen (Auto) 0 mg/dL 09/27/24 10:34 Leukocyte Esterase (Auto) 0.5 Azalia/uL 09/27/24 10:34 Coding Level of Care Code [place] Diagnoses Encounter for supervision of other normal , second trimester Z34.82 Assessment & Plan Assessment & Plan (1) Encounter for supervision of other normal , second trimester: Code(s): Z34.82 - Encounter for supervision of other normal , second trimester Category: Medical Orders: Orders AMB Urinalysis Automated Today Z34.82 - Encounter for supervision of other normal , second trimester PT Evaluation and Treatment Today M54.30 - Sciatica, unspecified side, Z34.82 - Encounter for supervision of other normal , second trimester
--- OUTSIDE RECORDS SUMMARY | 2024-09-27 11:48 | XMS_ITS | Encounter Summary ---
Author Organization [facility] Address [address] [place] [phone] Phone Care Team Providers Care Manager Of Financial Planning Name Role Phone Tiffany Heath MD Primary Care Provider [phone] Reason for Visit * Reason Onset Date Comments Med Refill 04/24/2020 Encounter Details Date Type Department Care Team (Late st Contact Info) Description 04/24/2020 Refill [facility] [place] [address] [place] [address] Miriam Elise MD [address] [place] [address] Encounter for initial prescription of injectable contraceptive [...] contraceptive documented in this encounter Care Teams Manager Of Financial Planning Relationship Specialty Start Date End Date Tiffany Heath MD [address] [place] [id number] PCP - General Pediatrics 06/25/23 03/28/24 documented as of this encounter
--- OUTSIDE RECORDS SUMMARY | 2024-09-27 11:48 | XMS_ITS | Encounter Summary ---
Author Organization [facility] Address [address] [place] [address] Phone Care Team Providers Care Gambling Broker Name Role Phone Tiffany Heath MD Primary Care Provider [phone] Reason for Visit * Reason Onset Date Comments Med Refill 09/17/2020 Encounter Details Date Type Department Care Team (Late st Contact Info) Description 09/17/2020 Refill [facility] [place] [address] [place] [address] Miriam Elise MD [address] [place] [address] Encounter for initial prescription of contraceptive pills [...] pills documented in this encounter Care Teams Gambling Broker Relationship Specialty Start Date End Date Tiffany Heath MD [address] [place] [address] PCP - General Pediatrics 06/25/23 03/28/24 documented as of this encounter
--- OUTSIDE RECORDS SUMMARY | 2024-09-27 11:48 | XMS_ITS | Encounter Summary ---
Author Organization [facility] Address [address] [place] [address] Phone Care Team Providers Care Health Safety Manager Name Role Phone Tiffany Heath MD Primary Care Provider [phone] Encounter Details Date Type Department Care Team (Late st Contact Info) Description 01/14/2017 Conversion Encounter [facility] [place] [address] [place] [address] Social History Tobacco Use Types Packs/Day Years [...] on filedocumented in this encounter Care Teams Health Safety Manager Relationship Specialty Start Date End Date Tiffany Heath MD [address] [place] [address] PCP - General Pediatrics 06/25/23 03/28/24 documented as of this encounter
--- OUTSIDE RECORDS SUMMARY | 2024-09-27 11:48 | XMS_ITS | Encounter Summary ---
Author Organization [facility] Address [address] [place] [address] Phone Care Team Providers Care Brass Wind Instrument Maker Name Role Phone Tiffany Heath MD Primary Care Provider [phone] Encounter Details Date Type Department Care Team (Late st Contact Info) Description 08/06/2016 Documentation [facility] Family Medicine [address] [place] [address] Family Medicine, Physician [address] [place], [place] [address] Social History Tobacco Use Types Packs/Day Years [...] on filedocumented in this encounter Care Teams Brass Wind Instrument Maker Relationship Specialty Start Date End Date Tiffany Heath MD [address] [place] [address] PCP - General Pediatrics 06/25/23 03/28/24 documented as of this encounter
--- OUTSIDE RECORDS SUMMARY | 2024-09-27 11:48 | XMS_ITS | Encounter Summary ---
Author Organization [facility] Address [address] [place] [address] Phone Care Team Providers Care Telephone Service Representative Name Role Phone Tiffany Heath MD Primary Care Provider [phone] Encounter Details Date Type Department Care Team (Late st Contact Info) Description 06/29/2011 Documentation [facility] [place] [address] [place] [address] Family Medicine, Physician [address] [place], [place] [address] Social History Tobacco Use Types Packs/Day Years [...] on filedocumented in this encounter Care Teams Telephone Service Representative Relationship Specialty Start Date End Date Tiffany Heath MD [address] [place] [address] PCP - General Pediatrics 06/25/23 03/28/24 documented as of this encounter
--- OUTSIDE RECORDS SUMMARY | 2024-09-27 11:48 | XMS_ITS | Clinical Summary ---
Author Organization [facility] Address [address] [place] [address] Phone Care Team Providers Care Hand Screen Printer Name Role Phone Unavailable Primary Care Provider [...] and depression., started seeing therapist Fer at [facility], for one year, then stopped. 01/12/24: Rating [...] Completed 08/10/2019, 015 Procedures * Due to [place] state law, this organization might not be sharing sensitive test results. Procedure Name Priority Date/Time Associated Diagnosis Comments CHLAMYDIA AND GONORRHEA, AMPLIFIED Routine 10/28/2023 1:50 PM EDT Screening for chlamydial disease from Last 3 Months or Most Recently Relevant to Health Maintenance Results * Due to [place] state law, this organization might not be sharing sensitive test results. * Chlamydia and Gonorrhoea, Amplified (10/28/2023 1:50 PM EDT) C trach NOELLE Negative Negative [facility] N gonorrhoeae NOELLE Negative Negative [facility] Urine (Urine) 10/28/2023 1:5 0 PM EDT 10/28/2023 Comment:UR Narrative [facility] - 11/03/2023 2:08 PM EDT Performed at: ??01 - [facility] [place] [address], [address], [place], [place] ??[id number] Chemistry Teacher: Ez Ramos MD, Phone: ??[phone] us Tiffany Heath MD LAB MICROBIOLOGY - GENERAL ORDER RONNY Final Result [facility] [address] [place] [address] from Last 3 Months or Most Recently Relevant to Health Maintenance Insurance [facility] NON PCC [facility] ACO [facility] NON PCC
--- OUTSIDE RECORDS SUMMARY | 2024-09-27 11:48 | XMS_ITS | Encounter Summary ---
Author Organization [facility] Address [address] [place] [phone] Phone Care Team Providers Care Cook Frozen Dessert Name Role Phone Tiffany Heath MD Primary Care Provider [phone] Encounter Details Date Type Department Care Team (Late st Contact Info) Description 05/08/2011 Documentation [facility] [place] [address] [place] [address] Family Medicine, Physician [address] [place], [place] [id number] Social History Tobacco Use Types Packs/Day Years [...] on filedocumented in this encounter Care Teams Cook Frozen Dessert Relationship Specialty Start Date End Date Tiffany Heath MD [address] [place] [address] PCP - General Pediatrics 06/25/23 03/28/24 documented as of this encounter
== END 2024-09-27 11:09 | disposition home or self-care (01) ==
LOC: HO.HWS 10:27
PROVIDERS: PCP Pediatrics; Visit Provider Advanced Practice Midwife
DX: Z34.82 Encounter for supervision of other normal pregnancy, second trimester (principal)
CPT/HCPCS: 25942

== ENCOUNTER → 2024-09-27 10:27 | Outpatient (BNVA) | payer OTHER, SELFPAY | PROVIDERS: PCP Pediatrics; Visit Provider Advanced Practice Midwife | DX: Z34.02 Encounter for supervision of normal first pregnancy, second trimester (principal); Z3A.21 21 weeks gestation of pregnancy | CPT/HCPCS: 81003; 99212 ==

== ENCOUNTER 2024-10-31 12:30 | Outpatient (AMB) | payer OTHER, SELFPAY ==
--- NOTE | 2024-10-31 12:47 | A.OFFVISPN_ITS ---
Intake Vital Signs 10/31/24 12:51 Height 5 ft 2 in Weight 149 lb BMI 27.2 BP 104/62 Intake Visit Reasons: GALINA Intake Note: Per patient currently 26 weeks. Pickle Sorter: Pickle Sorter Present (Halle) Accompanied by: Self / Same As Patient Allergies coconut Allergy (Verified 10/31/24 12:51) Anaphylaxis [facility] Medical History Sciatica LGSIL on Pap smear of cervix Nausea and vomiting in Family History Mother History of breast cancer Sister Thyroid carcinoma Maternal Grandfather No problems noted. Paternal Grandfather CAD (coronary artery disease) Social History Both parents involved: Yes Caregiver staying overnight: No Alcohol intake: never Patient Tobacco Use Status: Never used Tobacco Agree to transfusion: Yes Sexual orientation: Straight/Heterosexual Gender identity: Female Cognitive needs: No Hearing needs: No Vision needs: No Female Reproductive History Menstrual Age of Menarche: 11 History History 1 Elective abortions Para 0 Spontaneous abortions Hx # Term Pregnancies Ectopic pregnancies Hx # Pregnancies Multiple births Visit RADHA Calculator Estimated Delivery Date Method Current WG Current Estimate 02/07/25 LMP (Certain) 25w 6d Other Estimates 02/07/25 Ultrasound #1 25w 6d Expected Delivery Route/Plan Specific Issues/Plans Pt is planning to breast feed 19Yr. old G1 P 0 EDC: 02/06/25 by US Blood type: Apos Problem List: 1. naursea/vomiting. 2. LGSIL/HPV+, repeat pap 2025... Testing: Panorama/and or First Tri screen: Panorama-low risk, Horizon-neg. CF-negative NT scan: nl-1.1 AFP: FAS: Glucose: early 0 28 wk glucose: CBC 1st Tri: 12.6/37.5 28 wk. CBC: GBS: Vaccinations: Flu: obtained Covid: none Tdap: RSV: [id number]-May: Education/Services WIC: enrolled CBE: informed regarding [place] classes, library books and you tube or other professional medical web sites and videos. 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-?-?-?-?-?-?- 09/27/24 -?--?-?-?-?-?-?-?-?-?-?-?- 21w 0d 139 lb (+14 lb) 22 150 110/64 139 lb -?-?-?-?-?-?-?-?-?-?-?-?- 10/31/24 -?-?-?-?-?-?-?-?-?-?-?-?- 25w 6d 149 lb (+24 lb) 26 150 104/62 149 lb -?-?-?-?-?-?-?-?-?-?-?-?- Notes Visit Date: 10/31/24 Last Updated by: Mami Snow CNM Note author: Mami Snow CNM. 25.6 wk. GALINA. Taking PNV, Doing well with no concerns. Good appetite, stays well hydrated. Denies any LOF, VB, abd. pain or urinary symptoms. Good FM. She is still waiting for an appointment from PT for her sciatic pain. Interested in childbirth classes is going to look into [facility] program. She has been working on her baby registry. Prefers to stay for care at [facility] and deliver at [facility] verses transfer care to [facility] for all her care. Reviewed: PTL s/s-LOF/Ctx's/VB, when to seek emergent care. discomforts, self help measures. C and when to call for further evaluation. Encouraged a healthy well balanced diet, regular walking/exercise in pre gnancy. Hydrate well, 10-12 glasses of water daily. Twenty-eight week labs at next visit. Staff to call PT for appointment status. RTO 2-3 wks. Visit Date: 09/27/24 Last Updated by: Mami Snow CNM Note author: Mami Snow CNM. 21wk. GALINA. Accompanied by her sister. Taking PNV, and B vitamins due to ongoing nausea. Doing well with no concerns. Good appetite, stays well hydrated. Denies any LOF, VB, abd. pain or urinary symptoms. Reports her baby is very active. Concerns w/recent sciatic pain. Reviewed: FAS planned. PTL s/s-LOF/Ctx's/VB, when to seek emergent care. discomforts, self help measures. Encouraged a healthy well balanced diet, regular walking/exercise in . Hydrate well, 10-12 glasses of water daily. PT referral for sciatic pain. Reviewed plan for delivery at [facility], offered to transfer care to meet the midwives at [facility] for continued care. Patient prefers to remain at [facility] for her care and deliver at [facility] returning to the office here for care. RTO for 4 wks. Visit Date: 08/24/24 Last Updated by: Mami Snow CNM Note author: Mami Snow CNM. 16.1wk. GALINA. Taking PNV, and B6 vitamins. Doing well with no concerns. Good appetite, improved with use of Zofran, stays well hydrated. Denies any LOF, VB, abd. pain or urinary symptoms. Reviewed: PTL s/s-LOF/Ctx's/VB, when to seek emergent care. discomforts, self help measures. FKC and when to call the office for further eval. Encouraged a healthy well balanced diet, regular walking/exercise in . Hydrate well, 10-12 glasses of water daily. FAS ordered for mid August. RTO 4wks. Visit Date: 07/27/24 Last Updated by: Mami Snow CNM Note author: Mami Snow CNM. 12.1wk. IOB. Taking PNV, Doing well, stays well hydrated, admits to daily nausea and vomiting. Has tried Sea bands, dietary changes, continues to take B6 vitamins. Denies any LOF, VB, abd. pain or urinary symptoms. EPDS-4. Apos. Neri in to hear FHR. Reviewed: PTL s/s-LOF/Ctx's/VB, when to seek emergent care. discomforts, self help measures. Encouraged a healthy well balanced diet, regular walking/exercise in . Hydrate well, 10-12 glasses of water daily. Pap, cultures today. Rx for Zofran. Plan panoramic labs today. RTO 4wks. Visit Date: 07/21/24 Last Updated by: Mine Cardoza Timur Taveras is here with her step Mom, Yanelis for route inspector. LMP 05/03/24 RADHA by dates 02/07/25 and GA today 11w2d. US on 06/22/24 at 7w1d agrees with RADHA 02/07/25. This is Darcy's first and she is feeling well except for n ausea/vomiting daily. She is taking Vitamin B6 tid and PNVs daily, before bed. She does not feel the Vit B6 is helping as she continues to have nausea and vomiting. She has gained weight (prepregnancy 125 lbs and she has been maintaining her weight at 136-137 lbs, BMI is 24.9). She is able to take apples, apple juice, water, Preggy pops . Darcy is aware to go to ED if she cannot keep anything down for 12 hrs or more. We did discuss use of Unisom in addition to B6. FOB is Scot and Darcy notes they are very excited and Scot is very supportive. She was given the folder, we discussed first trimester education, danger signs, how to reach live in companion provider after hours. labs ordered and pt will schedule OB PE. All of Darcy's and her Mom's questions were answered to the best of my ability. Darcy will call back with any questions or concerns. Coding Level of Care Code [place] Diagnoses Encounter for supervision of other normal , second trimester Z34.82 Assessment & Plan Assessment & Plan (1) Encounter for supervision of other normal , second trimester: Code(s): Z34.82 - Encounter for supervision of other normal , second trimester Category: Medical Orders: Orders Complete Blood Count no Diff Today Z34.82 - Encounter for supervision of other normal , second trimester Syphilis Screen Today Z20.2 - Contact with and (suspected) exposure to infections with a predominantly sexual mode of transmission, Z34.82 - Encounter for supervision of other normal , second trimester Glucose 1 Hour PP 50gm Dose Today Z34.82 - Encounter for supervision of other normal , second trimester
[2024-10-31 12:51] VITALS: BP 104/62; BMI 27.2
--- OUTSIDE RECORDS SUMMARY | 2024-10-31 13:54 | XMS_ITS | Encounter Summary ---
Author Organization [facility] Address [address] [place] [address] Phone Care Team Providers Care Director Export Name Role Phone Tiffany Heath MD Primary Care Provider [phone] Encounter Details Date Type Department Care Team (Late st Contact Info) Description 01/14/2017 Conversion Encounter [facility] [place] [address] [place] [address] Social History Tobacco Use Types Packs/Day Years [...] on filedocumented in this encounter Care Teams Director Export Relationship Specialty Start Date End Date Tiffany Heath MD [address] [place] [address] PCP - General Pediatrics 06/25/23 03/28/24 documented as of this encounter
== END 2024-10-31 13:19 | disposition home or self-care (01) ==
LOC: HO.HWS 12:31
PROVIDERS: PCP Pediatrics; Visit Provider Advanced Practice Midwife
DX: Z34.82 Encounter for supervision of other normal pregnancy, second trimester (principal)
CPT/HCPCS: 25942

== ENCOUNTER → 2024-10-31 12:30 | Outpatient (BNVA) | payer OTHER, SELFPAY | PROVIDERS: PCP Pediatrics; Visit Provider Advanced Practice Midwife | DX: Z34.82 Encounter for supervision of other normal pregnancy, second trimester (principal) | CPT/HCPCS: 99212 ==

== ENCOUNTER 2024-11-14 11:24 | Outpatient (AMB) | payer OTHER, SELFPAY ==
--- NOTE | 2024-11-14 11:25 | A.OFFVISPN_ITS ---
Intake Vital Signs 11/14/24 11:26 Height 5 ft 2 in Weight 152 lb BMI 27.8 BP 118/70 Intake Visit Reasons: GALINA Intake Note: EPDS 0 Allergies coconut Allergy (Verified 11/14/24 11:25) Anaphylaxis Patient : Yes PFSH Medical History Sciatica LGSIL on Pap smear of cervix Nausea and vomiting in Family History Mother History of breast cancer Sister Thyroid carcinoma Maternal Grandfather No problems noted. Paternal Grandfather CAD (coronary artery disease) Social History Both parents involved: Yes Caregiver staying overnight: No Alcohol intake: never Patient Tobacco Use Status: Never used Tobacco Agree to transfusion: Yes Sexual orientation: Straight/Heterosexual Gender identity: Female Cognitive needs: No Hearing needs: No Vision needs: No Female Reproductive History Menstrual Age of Menarche: 11 History History 1 Elective abortions Para 0 Spontaneous abortions Hx # Term Pregnancies Ectopic pregnancies Hx # Pregnancies Multiple births Questionnaire Covina Depression Covina Depression Scale I have been able to laugh and see the funny side of things: As much as I always could I have looked forward with enjoyment to things: As much as I ever did I have blamed myself unnecessarily when things went wrong: No, never I have been anxious or worried for no reason: No, not at all I have felt scared of panicky for no good reason: No, not at all Things have been getting to me: No, I have been coping as well as ever I have been so unhappy that I have had difficulty sleeping: No, not at all I have felt sad or miserable: No, not at all I have been so unhappy that I have been crying: No, never The thought of harming myself has occurred to me: Never 0 Visit RADHA Calculator Estimated Delivery Date Method Current WG Current Estimate 02/07/25 LMP (Certain) 27w 6d Other Estimates 02/07/25 Ultrasound #1 27w 6d Expected Delivery Route/Plan Specific Issues/Plans Pt is planning to breast feed 19Yr. old G1 P 0 EDC: 02/06/25 by US Blood type: Apos Problem List: 1. naursea/vomiting. 2. LGSIL/HPV+, repeat pap 2025... Testing: Panorama/and or First Tri screen: Panorama-low risk, Horizon-neg. CF-negative NT scan: nl-1.1 FAS: normal Glucose: early 0 28 wk glucose: CBC 1st Tri: 12.6/37.5 28 wk. CBC: GBS: Vaccinations: Flu: obtained Covid: none Tdap: RSV: [id number]-May: Education/Services WIC: enrolled CBE: informed regarding [employer] classes, library books and you tube or other professional medical web sites and videos. 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-?-?-?-?-?-?-?-?-?- 08/24/24 -?-?-?-?-?-?-?-?-?-?-?-?- 16w 1d 137 lb (+12 lb) 16 150 100/60 137 lb -?-?-?-?-?-?-?-?-?-?-?-?- 09/27/24 -?-?-?-?-?-?-?-?-?-?-?-?- 21w 0d 139 lb (+14 lb) 22 150 110/64 139 lb -?-?-?-?-?-?-?-?-?-?-?-?- 10/31/24 -?-?-?-?-?-?-?-?-?-?-?-?- 25w 6d 149 lb (+24 lb) 26 150 104/62 149 lb -?-?-?-?-?-?-?-?-?-?-?-?- 11/14/24 -?-?-?-?-?-?-?-?-?-?-?-?- 27w 6d 152 lb (+27 lb) 27 150 active 118/70 152 lb -?-?-?-?-?-?-?-?-?-?-?-?- Notes Visit Date: 11/14/24 Last Updated by: Mami Snow CNM Note author: Mami Snow CNM. 27.6 wk. GALINA. Taking PNV, Doing well with no concerns. Good appetite, stays well hydrated. Denies any LOF, VB, abd. pain or urinary symptoms. Good FM. History of low back pain and sciatica, has PT appointment scheduled. Reviewed: PTL s/s-LOF/Ctx's/VB, and PEC, when to seek emergent care. discomforts, self help measures. FMC and when to call for further evaluation. Encouraged a healthy well balanced diet, regular walking/exercise in pr egnancy. Hydrate well, 10-12 glasses of water daily. Reviewed pelvic tilts and comfort measures. 28 week labs ordered advised to complete before her next visit. Prepping for CB, baby care. RTO 2 wks. Visit Date: 10/31/24 Last Updated by: Mami Snow CNM Note author: Mami nSow CNM. 25.6 wk. GALINA. Taking PNV, Doing well with no concerns. Good appetite, stays well hydrated. Denies any LOF, VB, abd. pain or urinary symptoms. Good FM. She is still waiting for an appointment from PT for her sciatic pain. Interested in childbirth classes is going to look into [facility] program. She has been working on her baby registry. Prefers to stay for care at [facility] and deliver at [facility] verses transfer care to [facility] for all her care. Reviewed: PTL s/s-LOF/Ctx's/VB, when to seek emergent care. discomforts, self help measures. FMC and when to call for further evaluation. Encouraged a healthy well balanced diet, regular walking/exercise in . Hydrate well, 10-12 glasses of water daily. Twenty-eight week labs at next visit. Staff to call PT for appointment status. RTO 2-3 wks. Visit Date: 09/27/24 Last Updated by: Mami Snow CNM Note author: Mami Snow CNM. 21wk. GALINA. Accompanied by her sister. Taking PNV, and B vitamins due to ongoing nausea. Doing well with no concerns. Good appetite, stays well hydrated. Denies any LOF, VB, abd. pain or urinary symptoms. Reports her baby is very active. Concerns w/recent sciatic pain. Reviewed: FAS planned. PTL s/s-LOF/Ctx's/VB, when to seek emergent care. discomforts, self help measures. Encouraged a healthy well balanced diet, regular walking/exercise in . Hydrate well, 10-12 glasses of water daily. PT referral for sciatic pain. Reviewed plan for delivery at [facility], offered to transfer care to meet the midwives at [facility] for continued care. Patient prefers to remain [place] [facility] [place] and deliver at [facility] returning to the office here for care. RTO for 4 wks. Visit Date: 08/24/24 Last Updated by: Mami Snow CNM Note author: Mami Snow CNM. 16.1wk. GALINA. Taking PNV, and B6 vitamins. Doing well with no concerns. Good appetite, improved with use of Zofran, stays well hydrated. Denies any LOF, VB, abd. pain or urinary symptoms. Reviewed: PTL s/s-LOF/Ctx's/VB, when to seek emergent care. discomforts, self help measures. FKC and when to call the office for further eval. Encouraged a healthy well balanced diet, regular walking/exercise in . Hydrate well, 10-12 glasses of water daily. FAS ordered for mid August. RTO 4wks. Visit Date: 07/27/24 Last Updated by: Mami Snow CNM Note author: Mami nSow CNM. 12.1wk. IOB. Taking PNV, Doing well, stays well hydrated, admits to daily nausea and vomiting. Has tried Sea bands, dietary changes, continues to take B6 vitamins. Denies any LOF, VB, abd. pain or urinary symptoms. EPDS-4. Apos. Neri in to hear FHR. Reviewed: PTL s/s-LOF/Ctx's/VB, when to seek emergent care. discomforts, self help measures. Encouraged a healthy well balanced diet, regular walking/exercise in . Hydrate well, 10-12 glasses of water daily. Pap, cultures today. Rx for Zofran. Plan panoramic labs today. RTO 4wks. Visit Date: 07/21/24 Last Updated by: Mine Cardoza Timur Taveras is here with her step Mom, Yanelis for lump machine operator. LMP 05/03/24 RADHA by dates 02/07/25 and GA today 11w2d. US on 06/22/24 at 7w1d agrees with RADHA 02/07/25. This is Darcy's first and she is feeling well except for nausea/vomiting daily. She is taking Vitamin B6 tid and PNVs daily, before bed. She does not feel the Vit B6 is helping as she continues to have nausea and vomiting. She has gained weight (prepregnancy 125 lbs and she has been maintaining her weight at 136-137 lbs, BMI is 24.9). She is able to take apples, apple juice, water, Preggy pops . Darcy is aware to go to ED if she cannot keep anything down for 12 hrs or more. We did discuss use of Unisom in addition to B6. FOB is [facility] and Darcy notes they are very excited and Scot is very supportive. She was given the folder, we discussed first trimester education, danger signs, how to reach carbon printer provider after hours. labs ordered and pt will schedule OB PE. All of Darcy's and her Mom's questions were answered to the best of my ability. Darcy will call back with any questions or concerns. Results AMB Urinalysis, Automated UA Leukoctes 0.5 Azalia/uL Last Edit by Nisa García [facility] on 11/14/24 11:3 5 UA Nitrite Negative Last Edit by Nisa García [facility] on 11/14/24 11:35 UA Urobilinogen 0 mg/dL Last Edit by Nisa García [facility] on 11/14/24 11:3 5 UA Protein 0 mg/dL Last Edit by Nisa García [facility] on 11/14/24 11:35 UA pH 7.5 Last Edit by Nisa García [facility] on 11/14/24 11:35 UA Blood 0 Varun/uL Last Edit by Nisa García [facility] on 11/14/24 11:35 UA Specific [place] 1.010 Last Edit by Nisa García [facility] on 11/14/24 11:35 UA Ketone Negative Last Edit by Nisa García [facility] on 11/14/24 11:35 UA Bilirubin 0 mg/dL Last Edit by Nisa García [facility] on 11/14/24 11:35 UA Glucose 0 mg/dL Last Edit by Nisa García [facility] on 11/14/24 11:35 Results Reviewed Results Reviewed: Laboratory Last Values Urine pH (Auto) 7.5 11/14/24 11:33 Specific [place] (Auto) 1.010 11/14/24 11:33 Urine Protein (Auto) 0 mg/dL 11/14/24 11:33 Glucose (UA)(Auto) 0 mg/dL 11/14/24 11:33 Urine Ketones (Auto) Negative 11/14/24 11:33 Urine Blood (Auto) 0 Varun/uL 11/14/24 11:33 Urine Nitrite (Auto) Negative 11/14/24 11:33 Urine Bilirubin (Auto) 0 mg/dL 11/14/24 11:33 Urine Urobilinogen (Auto) 0 mg/dL 11/14/24 11:33 Leukocyte Esterase (Auto) 0.5 Azalia/uL 11/14/24 11:33 Coding Level of Care Code [facility] Assessment & Plan Assessment & Plan Orders: Orders AMB Urinalysis Automated Today Z34.82 - Encounter for supervision of other normal , second trimester
[2024-11-14 11:26] VITALS: BP 118/70; BMI 27.8
--- OUTSIDE RECORDS SUMMARY | 2024-11-14 13:02 | XMS_ITS | Encounter Summary ---
Author Organization [facility] Address [address] [place] [address] Phone Care Team Providers Care [employer] Name Role Phone Tiffany Heath MD Primary Care Provider [phone] Encounter Details Date Type Department Care Team (Late st Contact Info) Description 01/14/2017 Conversion Encounter [facility] [place] [address] [place] [address] Social History Tobacco Use Types Packs/Day Years [...] on filedocumented in this encounter Care Teams [place] Relationship Specialty Start Date End Date Tfifany Heath MD [address] [place] [address] PCP - General Pediatrics 06/25/23 03/28/24 documented as of this encounter
== END 2024-11-14 11:57 | disposition home or self-care (01) ==
LOC: HO.HWS 11:24
PROVIDERS: PCP Pediatrics; Visit Provider Advanced Practice Midwife
DX: Z34.82 Encounter for supervision of other normal pregnancy, second trimester (principal)
CPT/HCPCS: 25942

== ENCOUNTER → 2024-11-14 11:24 | Outpatient (BNVA) | payer OTHER, SELFPAY | PROVIDERS: PCP Pediatrics; Visit Provider Advanced Practice Midwife | DX: Z34.82 Encounter for supervision of other normal pregnancy, second trimester (principal) | CPT/HCPCS: 81003; 99212 ==